=== PATIENT | male | born 1960 | race Caucasian/White ===

== ENCOUNTER 2021-02-15 22:37 | Emergency (ER) | payer OTHER, SELFPAY ==
--- NOTE | ~2021-02-15 | CT_ITS ---
EXAMINATION: CT ABDOMEN AND PELVIS WITHOUT CONTRAST CLINICAL INFORMATION: Pain. Concern for kidney stone. COMPARISON: 05/05/2021. TECHNIQUE: Contiguous axial thin section helical images of the abdomen and pelvis were performed without oral or IV contrast. The data set was reformatted in the coronal and sagittal planes and reviewed on an independent workstation. DLP: 701 mGy-cm. FINDINGS: The visualized lung bases are clear. The visualized portions of the heart are unremarkable. The liver is of normal size and attenuation without focal lesions nor intrahepatic biliary ductal dilation. A normal gallbladder is identified. There is no wall thickening or discernible pericholecystic fluid. The spleen, pancreas, adrenal glands are unremarkable. Both kidneys are of normal size and attenuation. There are punctate nonobstructive renal calculi within the lower poles bilaterally. There is left grade 1-2 hydroureteronephrosis secondary to a 3 mm obstructive left UVJ calculus. There is left perinephric stranding. There is no abdominal free fluid. There is neither mesenteric nor retroperitoneal lymphadenopathy. There is sigmoid diverticulosis without evidence of diverticulitis; otherwise, unremarkable unopacified loops of small and large bowel are identified. A normal appendix is identified. There is no pelvic free fluid. The urinary bladder is unremarkable. There is neither pelvic nor inguinal lymphadenopathy. There is a fat-containing left inguinal hernia. Bone windows: Neither sclerotic nor lytic bone lesions are identified. CT/CT abdomen pelvis wo con IMPRESSION: Left grade 1-2 hydroureteronephrosis secondary to a 3 mm obstructive left UVJ calculus. Nonobstructive renal calculi bilaterally. Automated exposure control (Care Dose) Adjustment of the mA and/or kv according to patient size (this includes techniques or standardized protocols for targeted exams where dose is matched to indication / reason for exam; i.e. extremities or head).
[2021-02-15 22:39] VITALS: BP 192/91; PULSE 50; RESP 20; TEMP 37.1; O2SAT 99; BMI 33.3
--- NOTE | 2021-02-15 23:21 | ED.ABDPAIN ---
HPI - Abdominal Pain General Chief Complaint: Abdominal Pain Stated Complaint: Flank pain Time Seen by Provider: 02/15/21 23:19 History of Present Illness HPI narrative: Patient is a 60-year-old male presents today with having abdominal pain. The pain is over the left side. It is sharp in nature. It is sudden in onset. Associated with nausea. Similar to previous bouts of kidney stone. Never had any kind of abdominal surgery in the past. No cough no congestion or upper respiratory symptoms. No diaphoresis. Patient is from home. Pain is 08/29. Related Data Previous Rx's Medication Instructions Recorded ibuprofen 400 mg PO Q6H PRN #20 tab 02/16/21 ondansetron 4 mg PO TID PRN 5 Days #10 tab 02/16/21 oxycodone-acetaminophen [Percocet] 1 tab PO TID PRN #10 tab 02/16/21 tamsulosin [Flomax] 0.4 mg PO DAILY #7 cap 02/16/21 Allergies Allergy/AdvReac Type Severity Reaction Status Date / Time No Known Allergies Allergy Unverified 08/06/20 16:31 Review of Systems Review of Systems Constitutional: No Weight loss, No Fever, No Chills, No Night Sweats, No Fatigue, No Malaise ENT/Mouth: No Hearing loss, No Ear Pain, No Nasal Congestion, No Sinus Pain, No Hoarseness, No sore throat, No Rhinorrhea, No Swallowing Difficulty Eyes: No Eye Pain, No Swelling, No Redness, No Foreign Body, No Discharge, No Vision Changes Cardiovascular: No Chest Pain, No SOB, No Dyspnea on Exertion, No Orthopnea, No Edema, No Palpitations Respiratory: No Cough, No Sputum, No Wheezing, No Smoke Exposure, No Dyspnea Gastrointestinal: No Nausea, No Vomiting, No Diarrhea, No Constipation, No abdominal Pain, No Hematochezia, No Melena Genitourinary: no irregular bleeding, No Dysuria, No Urinary Frequency, No Hematuria, No Urinary Incontinence, No Urgency, No Flank Pain, No Urinary Flow Changes, No Hesitancy Musculoskeletal: No joint pain, No Myalgias, No Joint Swelling Skin: No Skin Lesions, No rash Neuro: No Weakness, No Numbness, No Paresthesias, No Loss of Consciousness, No Dizziness, No Headache Psych: No Anxiety/Panic, No Depression, No SI/HI/AH/VH, No Social Issues, Heme/Lymph: No Bruising, No Bleeding,No Lymphadenopathy Endocrine: No Polyuria, No Polydipsia, No Temperature Intolerance Yes all other systems are reviewed and are negative Physical Exam Vital Signs: Vital Signs: Last Vital Signs Temp 97.7 F 02/16/21 00:16 Pulse 49 L 02/16/21 00:16 Resp 18 02/16/21 00:16 BP 147/86 H 02/16/21 00:16 Pulse Ox 97 02/16/21 00:16 Body Mass Index 33.3 Appearance: Alert. Oriented X3. No acute distress. Eyes: Pupils equal, round and reactive to light. ENT: Pharynx normal. Neck: Normal inspection. Neck supple. No lymph nodes noted. No crepitus CVS: Normal heart rate and rhythm. Pulses normal. Normal S1 and S2 Respiratory: No respiratory distress. Breath sounds normal. No Wheezing. No rales Abdomen: Soft and nontender. No rigidity. No distention. good BS x4 Skin: Skin warm and dry. Normal skin color. Normal skin turgor. Extremities: No lower extremity edema. Neurovascular intact to all extremities. No Lacerations. No Rash Neuro: Oriented X 3. No motor deficit. No sensory deficit. Moving all extermities. No slurred speech MDM - Abdominal Pain MDM Narrative Medical decision making narrative: Well-appearing question kidney stone. Will check urine. Will check CT of the abdomen will give pain medication and baseline labs. CT positive for 3 mm UVJ stone. Will discharge patient home. Pain medication. Patient's creatinine is normal. Urine showed no signs of infection. In stable condition. Lab Data Result diagrams: 02/15/21 23:43 02/16/21 00:14 Labs: Lab Results 02/15/21 02/15/21 02/15/21 Range/Units 23:42 23:42 23:43 WBC 8.3 (4.8-10.8) X10*3/uL RBC 4.94 (4.60-5.80) X10*6/uL Hgb 16.4 (14.0-18.0) g/dl Hct 48.2 (42-52) % MCV 97.6 (80-98) fL MCH 33.2 H (27.0-33.0) pg MCHC 34.0 (31.0-36.0) g/dl RDW 13.1 (11.0-16.0) % Plt Count 209 (160-400) X10*3/uL MPV 12.5 H (9.4-12.4) fL Immature Gran % (Auto) 0.2 (0.0-0.4) % Neut % (Auto) 60.5 (45-73) % Lymph % (Auto) 26.5 (20-40) % [place] % (Auto) 8.8 (2-11) % Eos % (Auto) 3.2 (0-4) % Baso % (Auto) 0.8 (0-2) % Lymph # (Auto) 2.2 (1.2-4.9) X10*3/uL [place] # (Auto) 0.7 (0.1-1.2) X10*3/uL Eos # (Auto) 0.3 (0.0-0.4) X10*3/uL Baso # (Auto) 0.1 (0.0-0.2) X10*3/uL Abs Immat Gran (auto) 0.02 (0.00-0.03) X10*3/uL Absolute Neuts (auto) 5.0 (2.0-8.3) X10*3/uL Absolute Nucleated RBC 0.000 (0.0-0.012) X10*3/uL Nucleated RBC % (auto) 0.0 (0.0-0.2) /100WBC Hold Blue Top SEE NOTE Sodium (135-145) mmol/L Potassium (3.3-5.1) mmol/L Chloride (96-108) mmol/L Carbon Dioxide (22-29) mmol/L Anion Gap (12-20) BUN (9-16) mg/dL Creatinine (0.5-1.4) mg/dL Estim Creat Clear Calc Estimated GFR Random Glucose (60-115) mg/dL Calcium (8.4-10.2) mg/dL Total Bilirubin (0.0-1.0) mg/dL AST (5-37) U/L ALT (0-40) U/L Alkaline Phosphatase (39-117) U/L Total Protein (6.5-8.0) g/dL Albumin (3.5-5.0) g/dL Lipase (8-78) U/L Urine Color DARK YELLOW Urine Appearance CLEAR Urine pH 6.0 (5.0-8.0) Ur Specific [place] >= 1.030 H (1.005-1.025) Urine Protein TRACE (NEG-TRACE) MG/DL Urine Glucose (UA) NEG (NEG) MG/DL Urine Ketones NEG (NEG) MG/DL Urine Blood 2+ H (NEG) Urine Nitrite NEG (NEG) Ur Leukocyte Esterase NEG (NEG) Urine RBC 1-4 (0) /HPF Urine WBC 1-4 (0-4) /HPF Ur Squamous Epith Cells 1+ /LPF Urine Bacteria NONE /LPF Urine Mucus 2+ /LPF 02/16/21 Range/Units 00:14 WBC (4.8-10.8) X10*3/uL RBC (4.60-5.80) X10*6/uL Hgb (14.0-18.0) g/dl Hct (42-52) % MCV (80-98) fL MCH (27.0-33.0) pg MCHC (31.0-36.0) g/dl RDW (11.0-16.0) % Plt Count (160-400) X10*3/uL MPV (9.4-12.4) fL Immature Gran % (Auto) (0.0-0.4) % Neut % (Auto) (45-73) % Lymph % (Auto) (20-40) % [place] % (Auto) (2-11) % Eos % (Auto) (0-4) % Baso % (Auto) (0-2) % Lymph # (Auto) (1.2-4.9) X10*3/uL [place] # (Auto) (0.1-1.2) X10*3/uL Eos # (Auto) (0.0-0.4) X10*3/uL Baso # (Auto) (0.0-0.2) X10*3/uL Abs Immat Gran (auto) (0.00-0.03) X10*3/uL Absolute Neuts (auto) (2.0-8.3) X10*3/uL Absolute Nucleated RBC (0.0-0.012) X10*3/uL Nucleated RBC % (auto) (0.0-0.2) /100WBC Hold Blue Top Sodium 139 (135-145) mmol/L Potassium 3.6 (3.3-5.1) mmol/L Chloride 103 (96-108) mmol/L Carbon Dioxide 26 (22-29) mmol/L Anion Gap 14 (12-20) BUN 13 (9-16) mg/dL Creatinine 1.18 (0.5-1.4) mg/dL Estim Creat Clear Calc 67.1 Estimated GFR > 60 Random Glucose 173 H (60-115) mg/dL Calcium 9.1 (8.4-10.2) mg/dL Total Bilirubin 1.1 H (0.0-1.0) mg/dL AST 33 (5-37) U/L ALT 41 H (0-40) U/L Alkaline Phosphatase 75 (39-117) U/L Total Protein 7.5 (6.5-8.0) g/dL Albumin 4.4 (3.5-5.0) g/dL Lipase 49 (8-78) U/L Urine Color Urine Appearance Urine pH (5.0-8.0) Ur Specific [place] (1.005-1.025) Urine Protein (NEG-TRACE) MG/DL Urine Glucose (UA) (NEG) MG/DL Urine Ketones (NEG) MG/DL Urine Blood (NEG) Urine Nitrite (NEG) Ur Leukocyte Esterase (NEG) Urine RBC (0) /HPF Urine WBC (0-4) /HPF Ur Squamous Epith Cells /LPF Urine Bacteria /LPF Urine Mucus /LPF Discharge Plan Discharge Clinical Impression: Renal colic Patient Disposition: Home, Self-Care Instructions: Renal Colic (ED) Prescriptions: New tamsulosin [Flomax] 0.4 mg capsule 0.4 mg PO DAILY Qty: 7 RF: 0 ibuprofen 400 mg tablet 400 mg PO Q6H PRN (Reason: pain) Qty: 20 RF: 0 ondansetron 4 mg tablet,disintegrating 4 mg PO TID PRN (Reason: nausea and vomiting) 5 Days Qty: 10 RF: 0 oxycodone-acetaminophen [Percocet] 5-325 mg tablet 1 tab PO TID PRN (Reason: pain) Qty: 10 RF: 0 Referrals: Hermes Castillo MD [Physician] - 2 days REPLACED BY [facility] Past Medical History Attestation statement: The following information was validated with the patient. Medical History Kidney stones Social History Social History Advance Directives: No
[2021-02-15] MEDS: HYDROmorphone HCl 0.5 MG/0.5 ML SYRINGE IVPUSH (23:46)
[2021-02-15] MEDS: ondansetron HCL 4 MG/2 ML VIAL IVPUSH (23:46)
[2021-02-15 23:47] LABS: Basophils Absolute Auto 0.1 X10*3/uL (0.0-0.2); Basophils Percent Auto 0.8 % (0-2); Eosinophils Absolute Auto 0.3 X10*3/uL (0.0-0.4); Eosinophils Percent Auto 3.2 % (0-4); Hematocrit 48.2 % (42-52); Hemoglobin 16.4 g/dl (14.0-18.0); Imm Gran Abs Auto 0.02 X10*3/uL (0.00-0.03); Imm Gran Pct Auto 0.2 % (0.0-0.4); Lymphocytes Absolute Auto 2.2 X10*3/uL (1.2-4.9); Lymphocytes Percent Auto 26.5 % (20-40); Mean Corpuscular Hemoglobin 33.2 pg (27.0-33.0); Mean Corpuscular Volume 97.6 fL (80-98); Mean Platelet Volume 12.5 fL (9.4-12.4); Monocytes Absolute Auto 0.7 X10*3/uL (0.1-1.2); Monocytes Percent Auto 8.8 % (2-11); Neutrophils Percent Auto 60.5 % (45-73); Platelet Count 209 X10*3/uL (160-400); Red Blood Count 4.94 X10*6/uL (4.60-5.80); Red Cell Distribution Width 13.1 % (11.0-16.0); White Blood Count 8.3 X10*3/uL (4.8-10.8)
[2021-02-15 23:48] LABS: MANUAL DIFF FLAG NO
[2021-02-15 23:49] LABS: Glucose Urine UA NEG (NEG); Leukocyte Esterase Urine NEG (NEG); Nitrite Urine NEG (NEG); Specific Gravity - Urine >= 1.030 (1.005-1.025); Urine Blood 2+ (NEG); Urine Ketones NEG (NEG); Urine Protein TRACE MG/DL (NEG-TRACE)
[2021-02-15 23:50] LABS: Appearance Urine CLEAR; Color Urine DARK YELLOW
[2021-02-15] MEDS: Ketorolac Tromethamine 15 MG/ML VIAL IV (23:54)
[2021-02-15 23:57] LABS: Mucus Urine 2+ /LPF; Squamous Epithelial Cell Urine 1+ /LPF
[2021-02-16 00:16] VITALS: BP 147/86; PULSE 49; RESP 18; TEMP 36.5; O2SAT 97
--- NOTE | 2021-02-16 00:52 | PC.NURSE ---
PT'S PAIN LEVEL NOW 4/10 FOLLOWING IV MEDICATIONS. PT NOW ABLE TO SIT IN BED, WAS PACING AND VOMITING.
[2021-02-16 00:57] LABS: Alanine Aminotransferase 41 U/L (0-40); Albumin Level 4.4 g/dL (3.5-5.0); Alkaline Phosphatase 75 U/L (39-117); Anion Gap 14 (12-20); Aspartate Amino Transferase 33 U/L (5-37); Bilirubin Total 1.1 mg/dL (0.0-1.0); Blood Urea Nitrogen 13 mg/dL (9-16); Calcium 9.1 mg/dL (8.4-10.2); Carbon Dioxide 26 mmol/L (22-29); Chloride 103 mmol/L (96-108); Creatinine Clr Calc Pharmacy 67.1; Estimated Glomerular Filt Rate > 60; Glucose Random 173 mg/dL (60-115); Lipase 49 U/L (8-78); Potassium 3.6 mmol/L (3.3-5.1); Sodium 139 mmol/L (135-145); Total Protein 7.5 g/dL (6.5-8.0)
[2021-02-16] MEDS: HYDROmorphone HCl 2 MG TABLET PO (01:27)
== END 2021-02-16 01:30 | disposition home or self-care (01) ==
PROVIDERS: Emergency Provider Emergency Medicine Emergency Medical Services; PCP Internal Medicine
DX: N13.2 Hydronephrosis with renal and ureteral calculous obstruction (principal); Z87.442 Personal history of urinary calculi
CPT/HCPCS: 36415; 74176; 80053; 81001; 83690; 85025; 96374; 96375; 99283; 99284; J1170; J1885; J2405

== ENCOUNTER 2021-05-06 10:29 | Inpatient (IN) | payer OTHER, SELFPAY ==
--- NOTE | ~2021-05-06 | CT_ITS ---
EXAMINATION: CT ABDOMEN AND PELVIS WITH CONTRAST CLINICAL INFORMATION: Right lower quadrant pain. COMPARISON: Prior CT examinations, most recently 02/06/2021. TECHNIQUE: Multidetector volumetric images were obtained from the superior aspect of the liver through the pubic symphysis following administration 85 mL of Omnipaque 350 intravenous contrast. Sagittal and coronal reformatted images were obtained on the technologist's workstation. Oral contrast: No This CT examination was performed using dose optimization techniques as appropriate, variously including the following: *Automated exposure control *Adjustment of mA and/or kV according to patient size (this includes techniques or standardized protocols for targeted exams where dose is matched to indication/reason for exam; i.e. extremities or head) *Use of iterative reconstruction technique DLP: 802 mGy-cm FINDINGS: LUNG BASES: The visualized lung bases are unremarkable. LIVER, GALLBLADDER, AND BILIARY TREE: The liver is normal in size, shape, and attenuation. No focal hepatic lesion or biliary ductal dilatation is present. The gallbladder is unremarkable with no evidence of radiopaque gallstones, gallbladder wall thickening, or obvious pericholecystic inflammatory changes. PANCREAS: Unremarkable. SPLEEN: Unremarkable. ADRENAL GLANDS: Unremarkable. KIDNEYS AND URETERS: The kidneys are normal in size, shape, and attenuation. No hydronephrosis, hydroureter, or calculi seen. No perinephric stranding. BLADDER: Unremarkable. GASTROINTESTINAL TRACT: There is moderate diverticulosis. There is vigorous fat stranding adjacent to the sigmoid colon, consistent with diverticulitis. There are adjacent tiny air locules at the anterior margin of the mid sigmoid colon (3:66), suggesting microperforation of a diverticulum. No free intraperitoneal air is seen. ABDOMINAL WALL: There is a moderate fat-containing left inguinal hernia. LYMPH NODES: Normal. VASCULAR: Unremarkable. PELVIC VISCERA: There is mild prostatomegaly, with a transverse span of 5.3 cm. There are coarse central prostatic calcifications. The seminal vesicles are unremarkable. OSSEOUS STRUCTURES: There is degenerative change of the right hip, with subchondral cyst formation. No acute or aggressive osseous abnormality is seen. CT/CT abdomen pelvis w con IMPRESSION: Findings are consistent with acute sigmoid diverticulitis with microperforation. No free intraperitoneal air is seen. There is no focal abscess formation.
--- NOTE | 2021-05-06 10:58 | ED_ITS ---
HPI - Abdominal Pain General Chief Complaint: Abdominal Pain Stated Complaint: lower abd pain Time Seen by Provider: 05/06/21 10:57 Source: patient Mode of arrival: ambulatory Limitations: no limitations History of Present Illness HPI narrative: 60 yo male hx of renal colic comes in with RLQ pain x 4 days c/o chills, some nausea but no vomiting/diarrhea, ate fish before hand MD elicited complaint: abdominal pain Pertinent past history: kidney stones Onset (ago): day(s) (4) Pain Consistency: constant Location: RLQ Severity: moderate Quality: cramping and aching Radiation: none Migration to: no migration Exacerbating factors: movement Relieving factors: nothing Associated symptoms: nausea Related Data Previous Rx's Medication Instructions Recorded ibuprofen 400 mg PO Q6H PRN #20 tab 02/16/21 ondansetron 4 mg PO TID PRN 5 Days #10 tab 02/16/21 oxycodone-acetaminophen [Percocet] 1 tab PO TID PRN #10 tab 02/16/21 oxycodone-acetaminophen [Percocet] 1 tab PO TID PRN #9 tab 02/16/21 tamsulosin [Flomax] 0.4 mg PO DAILY #7 cap 02/16/21 Allergies Allergy/AdvReac Type Severity Reaction Status Date / Time No Known Allergies Allergy Unverified 08/06/20 16:31 Review of Systems Review of Systems Constitutional : No Weight loss, No Fever, pos Chills ENT/Mouth : No sore throat, No Rhinorrhea Eyes: No Swelling, No Redness Cardiovascular : No Chest Pain, No SOB, NoEdema Respiratory : No Cough, No Sputum, No Wheezing Gastrointestinal : Positive Nausea, no Vomiting, no Diarrhea, positive abdominal Pain, No Hematochezia, No Melena Genitourinary : No Dysuria, No Urinary Frequency, No Hematuria, No Urgency Musculoskeletal : No joint pain, No Myalgias, No Joint Swelling Skin : No Skin Lesions, No rash Neuro : No Weakness, No Numbness, No Dizziness, No Headache Psych : No Anxiety/Panic, No Depression Heme/Lymph: No Bruising, No Lymphadenopathy Endocrine : No Polyuria, No Polydipsia All other systems reviewed and are negative. Physical Exam Vital Signs: Vital Signs: Last Vital Signs Temp 98.5 F 05/06/21 11:20 Pulse 67 05/06/21 11:20 Resp 16 05/06/21 11:20 BP 141/97 H 05/06/21 11:20 Pulse Ox 97 05/06/21 11:20 Body Mass Index 34.9 Appearance: Alert. Oriented X3. No acute distress. Eyes: Pupils equal, round and reactive to light. ENT: Pharynx normal. Neck: Normal inspection. Neck supple. CVS: Normal heart rate and rhythm. Pulses normal. Respiratory: No respiratory distress. Breath sounds normal. Abdomen: Soft and moderate RLQ ttp no rebound or guarding Skin: Skin warm and dry. Normal skin color. Normal skin turgor. Extremities: No lower extremity edema. No calf ttp Neuro: Oriented X 3. No motor deficit. No sensory deficit. Course Course Course Narrative: at this time given CT scan infection suspected 159pm - started cultures, lactic acid and IV zosyn, message sent to Dr. Olivier Aguayo to admit MDM - Abdominal Pain MDM Narrative Medical decision making narrative: 60 yo male hx of renal colic comes in with RLQ pain x 4 days c/o chills, some nausea but no vomiting/diarrhea, ate fish before hand at this time will need labs, UA, CT scan for appendicitis/renal colic, IV toradol, IV morphine for pain, dispo per results and findings Differential Diagnosis Differential diagnosis: Likely abdominal pain, acute appendicitis, calculus of kidney, diverticulitis and renal colic; Unlikely aortic dissection and mesenteric ischemia Lab Data Result diagrams: 05/06/21 11:30 05/06/21 11:30 Labs: Lab Results 05/06/21 05/06/21 05/06/21 Range/Units 11:30 11:30 11:30 WBC 12.6 H (4.8-10.8) X10*3/uL RBC 4.61 (4.60-5.80) X10*6/uL Hgb 15.3 (14.0-18.0) g/dl Hct 44.0 (42-52) % MCV 95.4 (80-98) fL MCH 33.2 H (27.0-33.0) pg MCHC 34.8 (31.0-36.0) g/dl RDW 12.7 (11.0-16.0) % Plt Count 187 (160-400) X10*3/uL MPV 12.0 (9.4-12.4) fL Immature Gran % (Auto) 0.4 (0.0-0.4) % Neut % (Auto) 75.4 H (45-73) % Lymph % (Auto) 12.7 L (20-40) % [place] % (Auto) 9.4 (2-11) % Eos % (Auto) 1.7 (0-4) % Baso % (Auto) 0.4 (0-2) % Lymph # (Auto) 1.6 (1.2-4.9) X10*3/uL [place] # (Auto) 1.2 (0.1-1.2) X10*3/uL Eos # (Auto) 0.2 (0.0-0.4) X10*3/uL Baso # (Auto) 0.1 (0.0-0.2) X10*3/uL Abs Immat Gran (auto) 0.05 H (0.00-0.03) X10*3/uL Absolute Neuts (auto) 9.5 H (2.0-8.3) X10*3/uL Absolute Nucleated RBC 0.000 (0.0-0.012) X10*3/uL Nucleated RBC % (auto) 0.0 (0.0-0.2) /100WBC Sodium 139 (135-145) mmol/L Potassium 4.4 D (3.3-5.1) mmol/L Chloride 102 (96-108) mmol/L Carbon Dioxide 29 (22-29) mmol/L Anion Gap 12 (12-20) BUN 11 (9-16) mg/dL Creatinine 1.08 (0.5-1.4) mg/dL Estim Creat Clear Calc 75.2 Estimated GFR > 60 Random Glucose 150 H (60-115) mg/dL Calcium 9.2 (8.4-10.2) mg/dL Magnesium 2.0 (1.6-2.6) mg/dL Total Bilirubin 1.1 H (0.0-1.0) mg/dL Direct Bilirubin 0.4 (0.0-0.5) mg/dL AST 22 (5-37) U/L ALT 26 (0-40) U/L Alkaline Phosphatase 81 (39-117) U/L Total Protein 6.8 (6.5-8.0) g/dL Albumin 4.1 (3.5-5.0) g/dL Lipase 45 (8-78) U/L Discharge Plan Discharge Clinical Impression: Diverticulitis Abdominal pain Qualifiers: Abdominal location: lower abdomen, unspecified Qualified Code(s): R10.30 - L ower abdominal pain, unspecified Leukocytosis Qualifiers: Leukocytosis type: unspecified Qualified Code(s): D72.829 - Elevated white blood cell count, unspecified Patient Disposition: Admitted As Inpatient [facility] Past Medical History Attestation statement: The following information was validated with the patient. Medical History Kidney stones Social History Social History (Updated 05/06/21 @ 11:09 by Oksana Mcfarlane DO) Alcohol intake: never Patient Tobacco Use Status: Never used Tobacco Advance Directives: Yes Advance Directives Information Provided: Yes Advance Directives on File: No
[2021-05-06 11:20] VITALS: BP 141/97; PULSE 67; RESP 16; TEMP 36.9; O2SAT 97; BMI 34.9
[2021-05-06 11:36] LABS: MANUAL DIFF FLAG NO
[2021-05-06 11:37] LABS: Basophils Absolute Auto 0.1 X10*3/uL (0.0-0.2); Basophils Percent Auto 0.4 % (0-2); Eosinophils Absolute Auto 0.2 X10*3/uL (0.0-0.4); Eosinophils Percent Auto 1.7 % (0-4); Hemoglobin 15.3 g/dl (14.0-18.0); Imm Gran Abs Auto 0.05 X10*3/uL (0.00-0.03); Imm Gran Pct Auto 0.4 % (0.0-0.4); Lymphocytes Absolute Auto 1.6 X10*3/uL (1.2-4.9); Lymphocytes Percent Auto 12.7 % (20-40); Mean Corpuscular HGB Conc 34.8 g/dl (31.0-36.0); Mean Corpuscular Hemoglobin 33.2 pg (27.0-33.0); Mean Corpuscular Volume 95.4 fL (80-98); Monocytes Absolute Auto 1.2 X10*3/uL (0.1-1.2); Monocytes Percent Auto 9.4 % (2-11); Neutrophils Absolute Auto 9.5 X10*3/uL (2.0-8.3); Neutrophils Percent Auto 75.4 % (45-73); Platelet Count 187 X10*3/uL (160-400); Red Blood Count 4.61 X10*6/uL (4.60-5.80); Red Cell Distribution Width 12.7 % (11.0-16.0); White Blood Count 12.6 X10*3/uL (4.8-10.8)
[2021-05-06] MEDS: ondansetron HCL 4 MG/2 ML VIAL IVPUSH (11:48)
[2021-05-06] MEDS: Morphine Sulfate 4 MG/ML CARTRIDGE IVPUSH (11:48)
[2021-05-06] MEDS: Ketorolac Tromethamine 30 MG/ML VIAL IVPUSH (11:48)
[2021-05-06] MEDS: 0.9 % Sodium Chloride 1,000 ML 999 ML IVCONT (11:48)
[2021-05-06 12:07] LABS: Anion Gap 12 (12-20); Blood Urea Nitrogen 11 mg/dL (9-16); Calcium 9.2 mg/dL (8.4-10.2); Carbon Dioxide 29 mmol/L (22-29); Chloride 102 mmol/L (96-108); Creatinine Clr Calc Pharmacy 75.2; Estimated Glomerular Filt Rate > 60; Glucose Random 150 mg/dL (60-115); Potassium 4.4 mmol/L (3.3-5.1); Sodium 139 mmol/L (135-145)
[2021-05-06 12:08] LABS: Alanine Aminotransferase 26 U/L (0-40); Albumin Level 4.1 g/dL (3.5-5.0); Alkaline Phosphatase 81 U/L (39-117); Aspartate Amino Transferase 22 U/L (5-37); Bilirubin Direct 0.4 mg/dL (0.0-0.5); Bilirubin Total 1.1 mg/dL (0.0-1.0); Lipase 45 U/L (8-78); Total Protein 6.8 g/dL (6.5-8.0)
[2021-05-06] MEDS: iohexoL 350 MG/ML 100 ML INFUS..BTL IV (13:00)
--- NOTE | 2021-05-06 14:25 | PHA.MEDREC ---
Pharmacy Consult ? Medication Reconciliation Pharmacy has completed the medication reconciliation. PATIENT HAD SOME OXYCODONE-APAP 5/325 LEFT OVER FROM THE LAST TIME HE WAS SEEN FOR A KIDNEY STONE. HE TOOK ONE TABLET YESTERDAY TO HELP WITH THE PAIN HE WAS FEELING DURING THE DAY. Other than that, the patient has no known home medications. [phone] Elizabet Santiago, [facility], PharmD
--- NOTE | 2021-05-06 14:28 | PM.HPGS ---
History of Present Illness History of Present Illness Date of Service: 05/07/21 Chief complaint: acute diverticulitis with microperforation Narrative: Noah Brown is a 60 year old male who came to the emergency room today because of lower abdominal pain. He said that he has had this for about 3-4 days now. He says that this is almost constant. He says that this has not improved at all so he decided to come to the emergency room. He denies any diarrhea. He denies any vomiting or nausea. He did state that he felt he had some fever at home although he did not document this. He said that he still has good oral intake. He says that he feels constipated now because he has pain whenever he tries to have a bowel movement. He has never had a colonoscopy in the past. He was here in the emergency room earlier this year because of kidney stones. He says that he was told that he this had passed on its own. Review of Systems Constitutional: Constitutional: Denies chills and Denies fever(s) Cardiovascular: Cardiovascular: Denies chest pain, Denies dyspnea and Denies dyspnea on exertion Respiratory: Respiratory: Denies cough, Denies dyspnea and Denies dyspnea on exertion Gastrointestinal: Gastrointestinal: Denies hematochezia and Denies change in bowel habits Genitourinary: Genitourinary: Denies hematuria and Denies difficulty urinating Musculoskeletal: Musculoskeletal: Denies back pain and Denies limited range of motion Neurologic: Denies focal weakness and Denies convulsions Psychiatric: Psychiatric: Denies depression and Denies mood swings PMFSH Past Medical History Medical History (Updated 05/06/21 @ 14:30 by Eliezer Aguayo MD) Kidney stones Kidney stones Social History Social History (Updated 05/06/21 @ 11:09 by Oksana Mcfarlane DO) Household Members: Family Housing: House Do you presently have visiting nurse or other home services: No Alcohol intake: never Patient Tobacco Use Status: Never used Tobacco Use of substances other than those prescribed or required for medical reasons: No Currently Displaying Signs/Symptoms of Drug Intoxication Withdrawal: No Have you been hit, kicked, punched, or otherwise hurt by someone within the past year? If so, by whom?: No Do you feel safe in your current relationship?: Yes Is there a partner from a previous relationship who is making you feel unsafe now?: No Are you made to feel afraid or neglected: No Advance Directives: Yes Advance Directives Information Provided: Yes Advance Directives on File: No Advance Directives Date on File: 05/06/21 Do you have thoughts of harming others: None Do you have a plan to hurt others: No Plan Recently lost weight without trying: No Eating poorly because of decreased appetite: No Nutrition Risks: No Nutritional Risk Poor oral hygiene: No service: Yes (2YRS [employer] [place]) Current occupational status: employed Meds Allergies Allergy/AdvReac Type Severity Reaction Status Date / Time No Known Allergies Allergy Verified 05/06/21 16:07 Active Medications: Current Medications Generic Name Dose Route Start Last Admin Trade Name Freq PRN Reason Stop Dose Admin Heparin Sodium (Porcine) 5,000 unit 05/06/21 17:00 Heparin Sodium,Porcine 5,000 Unit/Ml Vial SUBCUT Q12H RENÉE Lactated Ringer's 500 mls @ 80 mls/hr 05/06/21 14:30 Lr IV 05/06/21 20:44 .[id number] RENÉE Piperacillin Sod/Tazobactam 50 mls @ 100 mls/hr 05/06/21 15:00 Sod 3.375 gm/ Sodium Chloride IV 05/06/21 15:29 ONCE ONE Morphine Sulfate 3 mg 05/06/21 14:17 Morphine Sulfate 4 Mg/Ml Cartridge IVPUSH Q3H PRN Pain, Severe (Pain Scale 7-10) Ondansetron HCl 4 mg 05/06/21 14:22 Ondansetron Hcl 4 Mg/2 Ml Vial IVPUSH Q8H PRN nausea Pharmacy Consult 1 each 05/06/21 13:56 Consult Rx Perform Med Rec MISCELLANE ONCE PRN Consult order Sodium Chloride 3 ml 05/06/21 16:00 0.9 % Sodium Chloride Flush 3 Ml Syringe IVFLUSH QSHIFT [facility] Physical Exam Vital Signs: Vital Signs: Last Vital Signs Temp 98.5 F 05/06/21 11:20 Pulse 67 05/06/21 11:20 Resp 16 05/06/21 11:20 BP 141/97 H 05/06/21 11:20 Pulse Ox 97 05/06/21 11:20 Body Mass Index 34.9 Const: General: comfortable and no acute distress Orientation/consciousness: patient oriented x3 Neck: Neck: Yes no lymphadenopathy Resp: Auscultation: clear to auscultation bilaterally Cardio: Rhythm: regular rhythm GI: Other: Mild tenderness on lower abdomen with palpation Palpation (GI): Soft to palpation, nontender and no guarding Neuro: General: patient oriented x3 Results Results Labs: Short CBC 05/06/21 Range/Units 11:30 WBC 12.6 H (4.8-10.8) X10*3/uL Hgb 15.3 (14.0-18.0) g/dl Hct 44.0 (42-52) % Plt Count 187 (160-400) X10*3/uL BMP 05/06/21 11:30 Sodium 139 Potassium 4.4 D Chloride 102 Carbon Dioxide 29 BUN 11 Creatinine 1.08 Calcium 9.2 Liver Function 05/06/21 Range/Units 11:30 Total Bilirubin 1.1 H (0.0-1.0) mg/dL Direct Bilirubin 0.4 (0.0-0.5) mg/dL AST 22 (5-37) U/L ALT 26 (0-40) U/L Alkaline Phosphatase 81 (39-117) U/L Albumin 4.1 (3.5-5.0) g/dL Abdomen CT scan report/results: report reviewed and image reviewed CT scan - pelvis: report reviewed and image reviewed Assessment and Plan (1) Diverticulitis: Status: Acute He has had lower abdominal pain for about 3-4 days now. I have reviewed his CAT scan and there was note of inflammatory changes in the sigmoid consistent with acute diverticulitis. There are some small locules of air surrounding this suggestive of microperforation. There is no free air. He has a benign abdominal exam although has some tenderness on the lower abdomen. He will be started on IV Zosyn. He will be on bowel rest. I had a long discussion with him about the planned treatment. He understands that once in a while, laparotomy may be necessary if he worsens clinically or he does not improved over the next few days. His daughter was with him during the visit. Quality Stroke Does the patient have a stroke diagnosis?: No VTE Prior VTE?: No VTE Risk Level:: Surgical - high VTE Device Contraindication: N/A - Device Ordered VTE Drug Contraindication: N/A - Med Ordered Procedures Date of Service Date of Service: 05/07/21
[2021-05-06] MEDS: Piperacillin Sodium/Tazobactam 3.375 GM in 0.9 % Sodium Chloride 50 ML IV ×2 (14:30→20:08)
[2021-05-06 14:48] LABS: COVID-19 Test Negative (Negative); IDNOW Serial# 9DD0AD1C
[2021-05-06] MEDS: Lactated Ringers 500 ML 80 ML IV (15:11)
[2021-05-06 16:00] VITALS: BP 131/82; PULSE 54; RESP 18; TEMP 36.1; O2SAT 99
[2021-05-06] MEDS: Heparin Sodium,Porcine 5,000 UNIT/ML VIAL 5000 UNIT SUBCUT (17:00)
[2021-05-06] MEDS: Morphine Sulfate 4 MG/ML CARTRIDGE 3 MG IVPUSH (19:07)
[2021-05-06 21:40] LABS: Glucose Urine UA NEG (NEG); Leukocyte Esterase Urine NEG (NEG); Nitrite Urine NEG (NEG); Urine Blood NEG (NEG); Urine Ketones NEG (NEG); Urine Protein NEG (NEG-TRACE)
[2021-05-06 21:41] LABS: Appearance Urine CLEAR; Color Urine YELLOW
[2021-05-06] MEDS: 0.9 % Sodium Chloride Flush 3 ML SYRINGE IVFLUSH (22:47)
[2021-05-07] VITALS: BP 158/98; PULSE 51; RESP 18; TEMP 36.6; O2SAT 99
[2021-05-07] MEDS: Piperacillin Sodium/Tazobactam 3.375 GM in 0.9 % Sodium Chloride 50 ML IV ×4 (01:45→20:27)
[2021-05-07] MEDS: Heparin Sodium,Porcine 5,000 UNIT/ML VIAL 5000 UNIT SUBCUT ×2 (05:23→17:19)
[2021-05-07 06:45] LABS: MANUAL DIFF FLAG NO
[2021-05-07 06:58] LABS: Basophils Percent Auto 0.4 % (0-2); Eosinophils Absolute Auto 0.3 X10*3/uL (0.0-0.4); Hematocrit 41.4 % (42-52); Hemoglobin 14.1 g/dl (14.0-18.0); Imm Gran Abs Auto 0.06 X10*3/uL (0.00-0.03); Imm Gran Pct Auto 0.6 % (0.0-0.4); Lymphocytes Percent Auto 28.2 % (20-40); Mean Corpuscular HGB Conc 34.1 g/dl (31.0-36.0); Mean Corpuscular Hemoglobin 32.9 pg (27.0-33.0); Mean Corpuscular Volume 96.5 fL (80-98); Mean Platelet Volume 12.3 fL (9.4-12.4); Monocytes Absolute Auto 0.9 X10*3/uL (0.1-1.2); Monocytes Percent Auto 8.7 % (2-11); Neutrophils Absolute Auto 6.3 X10*3/uL (2.0-8.3); Neutrophils Percent Auto 59.1 % (45-73); Platelet Count 179 X10*3/uL (160-400); Red Blood Count 4.29 X10*6/uL (4.60-5.80); Red Cell Distribution Width 12.5 % (11.0-16.0); White Blood Count 10.7 X10*3/uL (4.8-10.8)
[2021-05-07 07:21] VITALS: BP 144/85; PULSE 54; RESP 17; TEMP 36.3; O2SAT 96
[2021-05-07 07:25] LABS: Anion Gap 10 (12-20); Blood Urea Nitrogen 7 mg/dL (9-16); Calcium 8.4 mg/dL (8.4-10.2); Carbon Dioxide 29 mmol/L (22-29); Chloride 103 mmol/L (96-108); Creatinine Clr Calc Pharmacy 79.6; Estimated Glomerular Filt Rate > 60; Glucose Random 110 mg/dL (60-115); Potassium 3.5 mmol/L (3.3-5.1); Sodium 138 mmol/L (135-145)
--- NOTE | 2021-05-07 09:11 | P.PNGS_ITS ---
Subjective Subjective Date of Service: 05/07/21 Interval history: feels much better says he does not have pain anymore Physical Exam Vital Signs: Vital Signs: Last Vital Signs Temp 97.3 F 05/07/21 07:21 Pulse 54 05/07/21 07:21 Resp 17 05/07/21 07:21 BP 144/85 H 05/07/21 07:21 Pulse Ox 96 05/07/21 07:21 Body Mass Index 34.9 Laboratory Results - last 24 hr 05/06/21 05/06/21 05/06/21 11:30 11:30 11:30 WBC 12.6 H RBC 4.61 Hgb 15.3 Hct 44.0 MCV 95.4 MCH 33.2 H MCHC 34.8 RDW 12.7 Plt Count 187 MPV 12.0 Immature Gran % (A uto) 0.4 Neut % (Auto) 75.4 H Lymph % (Auto) 12.7 L [place] % (Auto) 9.4 Eos % (Auto) 1.7 Baso % (Auto) 0.4 Lymph # (Auto) 1.6 [place] # (Auto) 1.2 Eos # (Auto) 0.2 Baso # (Auto) 0.1 Abs Immat Gran (au to) 0.05 H Absolute Neuts (au to) 9.5 H Absolute Nucleated RBC 0.000 Nucleated RBC % (a uto) 0.0 Sodium 139 Potassium 4.4 D Chloride 102 Carbon Dioxide 29 Anion Gap 12 BUN 11 Creatinine 1.08 Estim Creat Clear Calc 75.2 Estimated GFR > 60 Random Glucose 150 H Lactic Acid Calcium 9.2 Magnesium 2.0 Total Bilirubin 1.1 H Direct Bilirubin 0.4 AST 22 ALT 26 Alkaline Phosphata se 81 Total Protein 6.8 Albumin 4.1 Lipase 45 Urine Color Urine Appearance Urine pH Ur Specific Gravit y Urine Protein Urine Glucose (UA) Urine Ketones Urine Blood Urine Nitrite Ur Leukocyte Carline ase COVID-19 (CARLEE) COVID-19 Clin Com 05/06/21 05/06/21 05/06/21 14:25 14:25 21:33 WBC RBC Hgb Hct MCV MCH MCHC RDW Plt Count MPV Immature Gran % (A uto) Neut % (Auto) Lymph % (Auto) [place] % (Auto) Eos % (Auto) Baso % (Auto) Lymph # (Auto) [place] # (Auto) Eos # (Auto) Baso # (Auto) Abs Immat Gran (au to) Absolute Neuts (au to) Absolute Nucleated RBC Nucleated RBC % (a uto) Sodium Potassium Chloride Carbon Dioxide Anion Gap BUN Creatinine Estim Creat Clear Calc Estimated GFR Random Glucose Lactic Acid 1.0 Calcium Magnesium Total Bilirubin Direct Bilirubin AST ALT Alkaline Phosphata se Total Protein Albumin Lipase Urine Color YELLOW Urine Appearance CLEAR Urine pH 6.0 Ur Specific Gravit y 1.010 Urine Protein NEG Urine Glucose (UA) NEG Urine Ketones NEG Urine Blood NEG Urine Nitrite NEG Ur Leukocyte Carline ase NEG COVID-19 (CARLEE) Negative COVID-19 Clin Com See Note 05/07/21 05/07/21 06:38 06:38 WBC 10.7 RBC 4.29 L Hgb 14.1 Hct 41.4 L MCV 96.5 MCH 32.9 MCHC 34.1 RDW 12.5 Plt Count 179 MPV 12.3 Immature Gran % (A uto) 0.6 H Neut % (Auto) 59.1 Lymph % (Auto) 28.2 [place] % (Auto) 8.7 Eos % (Auto) 3.0 Baso % (Auto) 0.4 Lymph # (Auto) 3.0 [place] # (Auto) 0.9 Eos # (Auto) 0.3 Baso # (Auto) 0.0 Abs Immat Gran (au to) 0.06 H Absolute Neuts (au to) 6.3 Absolute Nucleated RBC 0.000 Nucleated RBC % (a uto) 0.0 Sodium 138 Potassium 3.5 D Chloride 103 Carbon Dioxide 29 Anion Gap 10 L BUN 7 L Creatinine 1.02 Estim Creat Clear Calc 79.6 Estimated GFR > 60 Random Glucose 110 Lactic Acid Calcium 8.4 D Magnesium Total Bilirubin Direct Bilirubin AST ALT Alkaline Phosphata se Total Protein Albumin Lipase Urine Color Urine Appearance Urine pH Ur Specific Gravit y Urine Protein Urine Glucose (UA) Urine Ketones Urine Blood Urine Nitrite Ur Leukocyte [place]line ase COVID-19 (CARLEE) COVID-19 Clin Com Const: General: comfortable and no acute distress Resp: Effort & Inspection: normal respiratory effort Cardio: Rhythm: regular rhythm GI: Other: no significant tenderness Palpation (GI): Soft to palpation, not firm and no guarding Progress Note: A&P Assessment and plan (1) Diverticulitis: Status: Acute Assessment and Plan: he feels much better no signficant pain or tenderness WBC now normal will keep on clear liquids today, plan to advance tomorrow continue IV abx he understands the plan Fall Risk Details Current Medications: Current Medications Generic Name Dose Route Start Last Admin Trade Name Freq PRN Reason Stop Dose Admin Heparin Sodium (Porcine) 5,000 unit 05/06/21 17:00 05/07/21 05:23 Heparin Sodium,Porcine 5,000 Unit/Ml Vial SUBCUT 5,000 unit Q12H RENÉE Administration Piperacillin Sod/Tazobactam 50 mls @ 100 mls/hr 05/06/21 20:00 05/07/21 08:51 Sod 3.375 gm/ Sodium Chloride IV 100 mls/hr Q6H RENÉE Administration Morphine Sulfate 3 mg 05/06/21 14:17 05/06/21 19:07 Morphine Sulfate 4 Mg/Ml Cartridge IVPUSH 3 mg Q3H PRN Administration Pain, Severe (Pain Scale 7-10) Ondansetron HCl 4 mg 05/06/21 14:22 Ondansetron Hcl 4 Mg/2 Ml Vial IVPUSH Q8H PRN nausea Oxycodone HCl 10 mg 05/06/21 16:32 Oxycodone Hcl Immed Release 5 Mg Tablet PO Q4H PRN Pain, Moderate (Pain Scale 4-6 Pharmacy Consult 1 each 05/06/21 13:56 Consult Rx Perform Med Rec MISCELLANE ONCE PRN Consult order Sodium Chloride 3 ml 05/06/21 16:00 05/06/21 22:47 0.9 % Sodium Chloride Flush 3 Ml Syringe IVFLUSH 3 ml QSHIFT RENÉE Administration Time Spent With Patient Time: Total time spent is greater than 50% in coordination of care (as documented) at patient's floor/unit and/or counseling patient: Time with patient: 15 - 24 minutes Procedures Date of Service Date of Service: 05/07/21 Quality Stroke Does the patient have a stroke diagnosis?: No VTE Prior VTE?: No VTE Risk Level:: Surgical - high VTE Device Contraindication: N/A - Device Ordered VTE Drug Contraindication: N/A - Med Ordered
[2021-05-07] MEDS: 0.9 % Sodium Chloride Flush 3 ML SYRINGE IVFLUSH ×2 (09:32→17:19)
--- NOTE | 2021-05-07 11:33 | MHC.CM.PN ---
nurse manager of case note ELECTRONIC MEDICAL RECORD REVIEWED CASE DISCUSSED WITH STAFF NURSE AND ON MULTIPLE DISCIPLIANRY ROUNDS, PATIENT TO BE DISCHARGED TODAY. DISCHARGE PLAN HOME - WITH FAMILY NO SERVICES PCP DR [facility]
[2021-05-07] MEDS: oxyCODONE HCl Immed Release 5 MG TABLET 10 MG PO (13:26)
[2021-05-07 15:35] VITALS: BP 131/82; PULSE 47; RESP 19; TEMP 36.2; O2SAT 98
[2021-05-08] VITALS: BP 163/90; PULSE 100; RESP 16; TEMP 36.4; O2SAT 94
[2021-05-08] MEDS: 0.9 % Sodium Chloride Flush 3 ML SYRINGE IVFLUSH ×2 (00:49→08:52)
[2021-05-08] MEDS: Piperacillin Sodium/Tazobactam 3.375 GM in 0.9 % Sodium Chloride 50 ML IV ×2 (01:59→08:51)
[2021-05-08] MEDS: Heparin Sodium,Porcine 5,000 UNIT/ML VIAL 5000 UNIT SUBCUT (05:36)
[2021-05-08 07:45] VITALS: BP 141/92; PULSE 55; RESP 16; TEMP 36.1; O2SAT 95
--- NOTE | 2021-05-08 07:55 | P.PNGS_ITS ---
Subjective Subjective Date of Service: 05/08/21 Interval history: Bishop Brown feels much improved this morning with no abdominal pain, nausea or vomiting. He is tolerating the clear liquids and would like to go home. Physical Exam Vital Signs: Vital Signs: Last Vital Signs Temp 96.9 F 05/08/21 07:45 Pulse 55 05/08/21 07:45 Resp 16 05/08/21 07:45 BP 141/92 H 05/08/21 07:45 Pulse Ox 95 05/08/21 07:45 Body Mass Index 34.9 Const: General: cooperative, comfortable, no acute distress, alert and awake Resp: Effort & Inspection: normal respiratory effort GI: Other: soft, non-distended, non-tender, normal bowel sounds, no rebound or guarding Skin: Other: warm, dry, no rash Extrem: General: Yes no clubbing, cyanosis or edema Progress Note: A&P Assessment and plan (1) Diverticulitis: Status: Acute Assessment and Plan: Patient is much improved following microperforation of a sigmoid diverticulum. Abdominal examination is benign this morning with no peritoneal signs. I will advance to a soft/low residue diet. If well tolerated may be discharged to home after lunch. Fall Risk Details Current Medications: Current Medications Generic Name Dose Route Start Last Admin Trade Name Freq PRN Reason Stop Dose Admin Heparin Sodium (Porcine) 5,000 unit 05/06/21 17:00 05/08/21 05:36 Heparin Sodium,Porcine 5,000 Unit/Ml Vial SUBCUT 5,000 unit Q12H RENÉE Administration Piperacillin Sod/Tazobactam 50 mls @ 100 mls/hr 05/06/21 20:00 05/08/21 02:50 Sod 3.375 gm/ Sodium Chloride IV Infused Q6H RENÉE Infusion Morphine Sulfate 3 mg 05/06/21 14:17 05/06/21 19:07 Morphine Sulfate 4 Mg/Ml Cartridge IVPUSH 3 mg Q3H PRN Administration Pain, Severe (Pain Scale 7-10) Ondansetron HCl 4 mg 05/06/21 14:22 Ondansetron Hcl 4 Mg/2 Ml Vial IVPUSH Q8H PRN nausea Oxycodone HCl 10 mg 05/06/21 16:32 05/07/21 13:26 Oxycodone Hcl Immed Release 5 Mg Tablet PO 10 mg Q4H PRN Administration Pain, Moderate (Pain Scale 4-6 Pharmacy Consult 1 each 05/06/21 13:56 Consult Rx Perform Med Rec MISCELLANE ONCE PRN Consult order Sodium Chloride 3 ml 05/06/21 16:00 05/08/21 00:49 0.9 % Sodium Chloride Flush 3 Ml Syringe IVFLUSH 3 ml QSHIFT RENÉE Administration Time Spent With Patient Time: Total time spent is greater than 50% in coordination of care (as sonido hyed) at patient's floor/unit and/or counseling patient: Time with patient: 15 - 24 minutes Procedures Date of Service Date of Service: 05/08/21 Quality Stroke Does the patient have a stroke diagnosis?: No VTE Prior VTE?: No VTE Risk Level:: Surgical - high VTE Device Contraindication: N/A - Device Ordered VTE Drug Contraindication: N/A - Med Ordered
--- NOTE | 2021-05-08 13:31 | MHC.CM.PN ---
Patient has been medically cleared for dc to home today, no services.
--- NOTE | 2021-05-10 17:15 | PM.DS ---
DS: Providers Provider Date of Service: 05/10/21 Date of admission: 05/06/21 14:17 Primary care physician: Doug Prieto MD DS: Diagnosis Discharge Diagnosis (1) Diverticulitis: Status: Acute Problem details: 60M admitted on April via the ED for lower abdominal pain. He had a CT scan showing inflammatory changes in the sigmoid colon c/w acute diverticulitis with a microperforation. He was started on iv Zosyn and kept on clear liquids. He improved with these measures. He remained afebrile during his entire stay. He had a very benign exam and had resolution of pain and tenderness. His idet was advanced to regular on May 08. He continued to tolerate this so he was discharged later that day. DS: Medications Discharge Medications Home Medications: Previous Rx's Medication Instructions Recorded amoxicillin-pot clavulanate 1 tab PO BID #14 tab 05/07/21 [Augmentin] DS: Summary Time Spent with Patient Time attestation: Total time spent providing and/or coordinating discharge services: Discharge coordination time: Less than 30 minutes Quality: Stroke Does the patient have a stroke diagnosis?: No Physical Exam Vital Signs: Vital Signs: Last Vital Signs Temp 96.9 F 05/08/21 07:45 Pulse 55 05/08/21 07:45 Resp 16 05/08/21 07:45 BP 141/92 H 05/08/21 07:45 Pulse Ox 95 05/08/21 07:45 Body Mass Index 34.9 Const: General: comfortable and no acute distress Orientation/consciousness: patient oriented x3 Neck: Neck: Yes no lymphadenopathy Resp: Auscultation: clear to auscultation bilaterally Cardio: Rhythm: regular rhythm GI: Palpation (GI): Soft to palpation, nontender and no guarding Neuro: General: patient oriented x3 DS: Data Data Completed and Pending Labs on day of discharge: Preliminary micro results at discharge 05/06/21 14:28 Blood Culture - Preliminary Blood - Venous No growth after 48 hours. 05/06/21 14:25 Blood Culture - Preliminary Blood - Venous No growth after 48 hours. Discharge Plan Discharge Patient Disposition: Home, Self-Care Discharge Diagnosis: acute diverticulitis Referrals: Eliezer Aguayo MD [Physician] - 1 Week Po,Doug Maharaj MD [Primary Care Provider] - 1 Week Discharge Medications: New amoxicillin-pot clavulanate [Augmentin] 875-125 mg tablet 1 tab PO BID Qty: 14 RF: 0 Discontinued oxycodone-acetaminophen [Percocet] 5-325 mg tablet 1 tab PO TID PRN (Reason: pain) Qty: 9 RF: 0 Discharge Orders: Discharge Order (Routine); Ordered 05/08/21 Ordered By: Mervin Esteves Activity on Discharge: As tolerated Stand Alone Forms: Patient Portal Discharge page Care Plan Goals: watch for signs of recurrent diverticulitis Health Concerns: watch for recurrent diverticulitis Plan of Treatment: oral antibiotics with Augmentin eventual ffup colonoscopy Assessment: doing much better after treatment Discharge Date/Time: 05/08/21 14:01
== END 2021-05-08 14:01 | disposition home or self-care (01) | DRG 244 ==
LOC: HO.ED 14:06 → HO.S3 15:00
PROVIDERS: Admitting Provider Surgery; Emergency Provider Emergency Medicine; PCP Internal Medicine; Visit Provider Surgery
DX: K57.20 Diverticulitis of large intestine with perforation and abscess without bleeding (principal); D72.829 Elevated white blood cell count, unspecified; Z20.822 Contact with and (suspected) exposure to COVID-19
CPT/HCPCS: 36415; 74177; 80048; 80076; 81003; 83605; 83690; 83735; 85025; 87040; 87635; 99285; J1885; J2270; J2405; J2543; Q9967

== ENCOUNTER → 2021-05-19 14:29 | Outpatient (BNVA) | payer OTHER, SELFPAY | PROVIDERS: PCP Internal Medicine; Referring Provider Internal Medicine; Visit Provider Surgery | DX: K57.92 Diverticulitis of intestine, part unspecified, without perforation or abscess without bleeding (principal) | CPT/HCPCS: 99212 ==

== ENCOUNTER 2023-05-26 12:34 | Emergency (ER) | payer OTHER, SELFPAY ==
[2023-05-26 12:42] VITALS: BP 195/89; PULSE 46; RESP 20; TEMP 36.5; O2SAT 96; BMI 34.1
--- NOTE | 2023-05-26 12:43 | ED.GENADULT ---
HPI - General Adult General Chief complaint: Abdominal Pain Stated complaint: lower abd pain Time Seen by Provider: 05/26/23 12:59 Related Data Previous Rx's ?Medication ?Instructions ?Recorded amoxicillin 875 mg-potassium 1 tab PO BID #14 tabs 05/07/21 clavulanate 125 mg tablet (Augmentin) ibuprofen 400 mg tablet 400 mg PO Q6H PRN pain #20 tabs 05/26/23 ondansetron 4 mg disintegrating 4 mg PO TID PRN nausea and 05/26/23 tablet vomiting 5 days #10 tabs oxycodone 5 mg tablet 5 mg PO Q8H PRN pain #7 tabs 05/26/23 Allergies Allergy/AdvReac Type Severity Reaction Status Date / Time No Known Allergies Allergy Verified 05/19/21 14:40 [facility] Past Medical History Medical History Diverticulitis Kidney stones Kidney stones Social History Social History Household Members: Family Housing: House Do you presently have visiting nurse or other home services: No Alcohol intake: never Patient Tobacco Use Status: Never used Tobacco Advance Directives: Yes Advance Directives Information Provided: Yes Advance Directives on File: No Advance Directives Date on File: 05/06/21 service: Yes (2YRS [employer] [place]) Current occupational status: employed Physical Exam ED Vital Signs: BMI result Body Mass Index 34.1 Course Course Course Narrative: This is an RME: Additional HPI, ROS, PE not included below will be deferred to primary provider. Patient is a 62 year old male with a past medical history of kidney stones and diverticulitis with microperforation presents with severe left lower quadrant abdominal pain since this morning. Patient has low heart rate in 40s and elevated bp. Patient is visibly uncomfortable and sweating. Plan: labs, imaging, pain management Medications Administered Discontinued Medications Generic Name Dose Route Start Last Admin Trade Name Freq PRN Reason Stop Dose Admin Hydromorphone HCl 0.5 mg 05/26/23 13:04 05/26/23 13:15 Hydromorphone Hcl 0.5 Mg/0.5 Ml Syringe IVPUSH 05/26/23 13:05 0.5 mg ONCE ONE Administration Protocol Sodium Chloride 1,000 mls @ 999 mls/hr 05/26/23 12:45 05/26/23 13:14 Ns IV 05/26/23 13:45 999 mls/hr .Q1H1M RENÉE Administration Ketorolac Tromethamine 30 mg 05/26/23 13:05 05/26/23 13:15 Ketorolac Tromethamine 30 Mg/Ml Vial IVPUSH 05/26/23 13:06 30 mg ONCE ONE Administration Morphine Sulfate 4 mg 05/26/23 12:41 05/26/23 13:16 Morphine Sulfate 4 Mg/Ml Cartridge IVPUSH 05/26/23 12:42 Not Given ONCE ONE Protocol Medical Decision Making Lab Data 05/26/23 13:12 05/26/23 13:12 Labs: Lab Results 05/26/23 05/26/23 Range/Units 13:12 15:57 WBC 8.2 (4.8-10.8) X10*3/uL RBC 5.42 (4.60-5.80) X10*6/uL Hgb 17.0 (14.0-18.0) g/dl Hct 49.7 (42.0-52.0) % MCV 91.7 (80.0-98.0) fL MCH 31.4 (27.0-33.0) pg MCHC 34.2 (31.0-36.0) g/dl RDW 13.2 (11.0-16.0) % Plt Count 202 (160-400) X10*3/uL MPV 12.3 (9.4-12.4) fL Immature Gran % (Auto) 0.4 (0.0-0.4) % Neut % (Auto) 52.8 (45-73) % Lymph % (Auto) 32.8 (20-40) % [place] % (Auto) 8.6 (2-11) % Eos % (Auto) 4.5 H (0-4) % Baso % (Auto) 0.9 (0-2) % Lymph # (Auto) 2.7 (1.2-4.9) X10*3/uL [place] # (Auto) 0.7 (0.1-1.2) X10*3/uL Eos # (Auto) 0.4 (0.0-0.4) X10*3/uL Baso # (Auto) 0.1 (0.0-0.2) X10*3/uL Abs Immat Gran (auto) 0.03 (0.00-0.03) X10*3/uL Absolute Neuts (auto) 4.3 (2.0-8.3) x10*3/uL Absolute Nucleated RBC 0.000 (0.0-0.012) X10*3/uL Nucleated RBC % (auto) 0.0 (0.0-0.2) /100WBC Sodium 144 (135-145) mmol/L Potassium 3.7 (3.3-5.1) mmol/L Chloride 106 (96-108) mmol/L Carbon Dioxide 25 (22-29) mmol/L Anion Gap 17 (12-20) BUN 10 (9-16) mg/dL Creatinine 1.39 (0.5-1.4) mg/dL Estim Creat Clear Calc 56.2 Estimated GFR 51 Random Glucose 138 H (60-115) mg/dL Calcium 10.0 D (8.4-10.2) mg/dL Magnesium 2.0 (1.6-2.6) mg/dL Total Bilirubin 1.3 H (0.0-1.0) mg/dL AST 20 (5-37) U/L ALT 15 (0-40) U/L Alkaline Phosphatase 78 (39-117) U/L Total Protein 7.7 (6.5-8.0) g/dL Albumin 4.4 (3.5-5.0) g/dL Lipase 15 (8-78) U/L Urine Color Yellow Urine Appearance Clear Urine pH 6.5 (5.0-9.0) Ur Specific [place] 1.015 (1.005-1.025) Urine Protein Trace (Neg-Trace) mg/dL Urine Glucose (UA) Negative (Negative) mg/dL Urine Ketones Negative (Negative) mg/dL Urine Blood Large (3+) H (Negative) Urine Nitrite Negative (Negative) Ur Leukocyte Esterase Negative (Negative) Urine RBC >20 H (0-2) /HPF Urine WBC 0-5 (0-5) /HPF Ur Squamous Epith Cells 0-2 (0-2) /HPF Urine Bacteria None Seen (None Seen) Hyaline Casts 0-2 (0-2) /LPF Discharge Plan Discharge Clinical Impression: Kidney stones, Abdominal pain, Hematuria Patient Disposition: Home, Self-Care Instructions: Hematuria (ED), Abdominal Pain (ED) Prescriptions: New ibuprofen 400 mg tablet 400 mg PO Q6H PRN (Reason: pain) Qty: 20 0RF ondansetron 4 mg tablet,disintegrating 4 mg PO TID PRN (Reason: nausea and vomiting) 5 Days Qty: 10 0RF oxycodone 5 mg tablet 5 mg PO Q8H PRN (Reason: pain) Qty: 7 0RF Rx Instructions: Partial Fill upon patient request. No Action amoxicillin-pot clavulanate [Augmentin] 875-125 mg tablet 1 tab PO BID Qty: 14 0RF Referrals: Divya Cheung MD [Physician] - 05/30/23 Po,Doug Maharaj MD [Primary Care Provider] - Interventions: ED Discharge Assessment Last Done: 05/26/23 17:04 Discharge Date/Time: 05/26/23 17:04 Print Language: Frisian
--- NOTE | 2023-05-26 13:08 | ED.ABDPAIN ---
HPI - Abdominal Pain General Chief Complaint: Abdominal Pain Stated Complaint: lower abd pain Time Seen by Provider: 05/26/23 12:59 History of Present Illness HPI narrative: Patient is a 62-year-old male with a history of kidney stones in the past presents today with having extreme abdominal pain. It is over the left flank area rating down to the left lower quadrant. Very similar to previous bouts of kidney stone. No history of dissections in the past. No abdominal surgery in the past. No fever no chills. No chest pain or shortness of breath. No nausea no vomiting no diarrhea. Patient from home. No allergies to medication. Related Data Previous Rx's Medication Instructions Recorded amoxicillin 875 mg-potassium 1 tab PO BID #14 tabs 05/07/21 clavulanate 125 mg tablet (Augmentin) ibuprofen 400 mg tablet 400 mg PO Q6H PRN pain #20 tabs 05/26/23 ondansetron 4 mg disintegrating 4 mg PO TID PRN nausea and 05/26/23 tablet vomiting 5 days #10 tabs oxycodone 5 mg tablet 5 mg PO Q8H PRN pain #7 tabs 05/26/23 Allergies Allergy/AdvReac Type Severity Reaction Status Date / Time No Known Allergies Allergy Verified 05/19/21 14:40 Review of Systems Review of Systems Positive abdominal pain to the left flank area Yes all other systems are reviewed and are negative PMFSH Past Medical History Attestation statement: The following information was validated with the patient. Medical History Diverticulitis Kidney stones Kidney stones Social History Social History Household Members: Family Housing: House Do you presently have visiting nurse or other home services: No Alcohol intake: never Patient Tobacco Use Status: Never used Tobacco Advance Directives: Yes Advance Directives Information Provided: Yes Advance Directives on File: No Advance Directives Date on File: 05/06/21 service: Yes (2YRS [employer]ES IN [place]) Current occupational status: employed Physical Exam ED Vital Signs: Vital Signs - 24 hr 05/26/23 12:42 05/26/23 15:54 Temperature 97.7 F 97.8 F Pulse Rate 46 L 43 L Respiratory Rate 20 16 Blood Pressure 195/89 H 165/87 H Pulse Oximetry 96 98 Oxygen Delivery Method Room Air Room Air BMI result Body Mass Index 34.1 Appearance: Alert. Oriented X3. No acute distress. Eyes: Pupils equal, round and reactive to light. ENT: Pharynx normal. Neck: Normal inspection. Neck supple. No lymph nodes noted. No crepitus CVS: Normal heart rate and rhythm. Pulses normal. Normal S1 and S2 Respiratory: No respiratory distress. Breath sounds normal. No Wheezing. No rales Abdomen: Soft and nontender. No rigidity. No distention. good BS x4 Skin: Skin warm and dry. Normal skin color. Normal skin turgor. Extremities: No lower extremity edema. Neurovascular intact to all extremities. No Lacerations. No Rash Neuro: Oriented X 3. No motor deficit. No sensory deficit. Moving all extermities. No slurred speech Medical Decision Making Medical Decision Making MDM Narrative: Patient's pain consistent with kidney stone. Has extreme pain over the flank area very abrupt in onset with previous history of kidney stones in the past. Positive blood in the urine. However patient's CT scan of the abdomen was negative for any acute ureteral stone. Patient has no urinary tract infection. On CT showed no evidence of diverticulitis. No abscess no perforation or obstruction. Pain is control after pain medication. Will discharge patient home. However the chance of having a passed stone versus blood in the urine still exist. Will have patient follow-up with urology on an outpatient basis. We will give pain medication. In stable condition. Differential Diagnosis Differential Diagnoses: The differential diagnosis associated with the presentation includes Renal colic, passed stone, diverticulitis, abscess, perforation, appendicitis Lab Data [facility] Lab Attestation statement: I reviewed the patient's lab results. 05/26/23 13:12 05/26/23 13:12 Labs: Lab Results 05/26/23 05/26/23 05/26/23 Range/Units 13:12 13:12 15:57 WBC 8.2 (4.8-10.8) X10*3/uL RBC 5.42 (4.60-5.80) X10*6/uL Hgb 17.0 (14.0-18.0) g/dl Hct 49.7 (42.0-52.0) % MCV 91.7 (80.0-98.0) fL MCH 31.4 (27.0-33.0) pg MCHC 34.2 (31.0-36.0) g/dl RDW 13.2 (11.0-16.0) % Plt Count 202 (160-400) X10*3/uL MPV 12.3 (9.4-12.4) fL Immature Gran % (Auto) 0.4 (0.0-0.4) % Neut % (Auto) 52.8 (45-73) % Lymph % (Auto) 32.8 (20-40) % [place] % (Auto) 8.6 (2-11) % Eos % (Auto) 4.5 H (0-4) % Baso % (Auto) 0.9 (0-2) % Lymph # (Auto) 2.7 (1.2-4.9) X10*3/uL [place] # (Auto) 0.7 (0.1-1.2) X10*3/uL Eos # (Auto) 0.4 (0.0-0.4) X10*3/uL Baso # (Auto) 0.1 (0.0-0.2) X10*3/uL Abs Immat Gran (auto) 0.03 (0.00-0.03) X10*3/uL Absolute Neuts (auto) 4.3 (2.0-8.3) x10*3/uL Absolute Nucleated RBC 0.000 (0.0-0.012) X10*3/uL Nucleated RBC % (auto) 0.0 (0.0-0.2) /100WBC Sodium 144 (135-145) mmol/L Potassium 3.7 (3.3-5.1) mmol/L Chloride 106 (96-108) mmol/L Carbon Dioxide 25 (22-29) mmol/L Anion Gap 17 (12-20) BUN 10 (9-16) mg/dL Creatinine 1.39 (0.5-1.4) mg/dL Estim Creat Clear Calc 56.2 Estimated GFR 51 Random Glucose 138 H (60-115) mg/dL Calcium 10.0 D (8.4-10.2) mg/dL Magnesium 2.0 (1.6-2.6) mg/dL Total Bilirubin 1.3 H (0.0-1.0) mg/dL AST 20 (5-37) U/L ALT 15 (0-40) U/L Alkaline Phosphatase 78 (39-117) U/L Total Protein 7.7 (6.5-8.0) g/dL Albumin 4.4 (3.5-5.0) g/dL Lipase 15 (8-78) U/L Urine Color Yellow Urine Appearance Clear Urine pH 6.5 (5.0-9.0) Ur Specific [place] 1.015 (1.005-1.025) Urine Protein Trace (Neg-Trace) mg/dL Urine Glucose (UA) Negative (Negative) mg/dL Urine Ketones Negative (Negative) mg/dL Urine Blood Large (3+) H (Negative) Urine Nitrite Negative (Negative) Ur Leukocyte Esterase Negative (Negative) Urine RBC >20 H (0-2) /HPF Urine WBC 0-5 (0-5) /HPF Ur Squamous Epith Cells 0-2 (0-2) /HPF Urine Bacteria None Seen (None Seen) Hyaline Casts 0-2 (0-2) /LPF Radiology Impression Discussion of test interpretation with radiology: I have reviewed the radiologist's reading. Chronic Conditions Previous history of kidney stone Medications Administered Discontinued Medications Generic Name Dose Route Start Last Admin Trade Name Freq PRN Reason Stop Dose Admin Hydromorphone HCl 0.5 mg 05/26/23 13:04 05/26/23 13:15 Hydromorphone Hcl 0.5 Mg/0.5 Ml Syringe IVPUSH 05/26/23 13:05 0.5 mg ONCE ONE Administration Protocol Sodium Chloride 1,000 mls @ 999 mls/hr 05/26/23 12:45 05/26/23 13:14 Ns IV 05/26/23 13:45 999 mls/hr .Q1H1M RENÉE Administration Ketorolac Tromethamine 30 mg 05/26/23 13:05 05/26/23 13:15 Ketorolac Tromethamine 30 Mg/Ml Vial IVPUSH 05/26/23 13:06 30 mg ONCE ONE Administration Morphine Sulfate 4 mg 05/26/23 12:41 05/26/23 13:16 Morphine Sulfate 4 Mg/Ml Cartridge IVPUSH 05/26/23 12:42 Not Given ONCE ONE Protocol Discharge Plan Discharge Clinical Impression: Kidney stones, Abdominal pain, Hematuria Patient Disposition: Home, Self-Care Instructions: Hematuria (ED), Abdominal Pain (ED) Prescriptions: New ibuprofen 400 mg tablet 400 mg PO Q6H PRN (Reason: pain) Qty: 20 0RF ondansetron 4 mg tablet,disintegrating 4 mg PO TID PRN (Reason: nausea and vomiting) 5 Days Qty: 10 0RF oxycodone 5 mg tablet 5 mg PO Q8H PRN (Reason: pain) Qty: 7 0RF Rx Instructions: Partial Fill upon patient request. No Action amoxicillin-pot clavulanate [Augmentin] 875-125 mg tablet 1 tab PO BID Qty: 14 0RF Referrals: Divya Cheung MD [Physician] - 05/30/23 Po,Doug Maharaj MD [Primary Care Provider] -
--- NOTE | 2023-05-26 14:19 | PC.NURSE ---
appears much more comfortable at this time, awaiting ct scan results. states he is feeling much better after pain medications
[2023-05-26 15:54] VITALS: BP 165/87; PULSE 43; RESP 16; TEMP 36.6; O2SAT 98
== END 2023-05-26 17:04 | disposition home or self-care (01) ==
PROVIDERS: Emergency Provider Emergency Medicine Emergency Medical Services; PCP Internal Medicine
DX: N20.0 Calculus of kidney (principal); R31.9 Hematuria, unspecified; R10.2 Pelvic and perineal pain; Z79.899 Other long term (current) drug therapy
CPT/HCPCS: 36415; 74176; 80053; 81001; 83690; 83735; 85025; 96374; 96375; 99284; J1170; J1885

== ENCOUNTER 2025-09-18 01:00 | Inpatient (IN) | payer OTHER, SELFPAY ==
[2025-09-18] VITALS (8 sets, daily range): BP systolic 123–158; BP diastolic 69–92; PULSE 44–66; RESP 12–20; TEMP 36.1–36.8; O2SAT 95–99; BMI 34.1; BMI 32.9
--- NOTE | 2025-09-18 | ECG_ITS ---
Test Reason : BRADYCARDIA Blood Pressure : */* mmHG Vent. Rate : 47 BPM Atrial Rate : 47 BPM P-R Int : 180 ms QRS Dur : 102 ms QT Int : 456 ms P-R-T Axes : 30 -48 13 degrees QTcB Int : 403 ms Sinus bradycardia Left anterior fascicular block Abnormal ECG No previous ECGs available Referred By: Markel Ziegler Electronically Signed By: ADRIANE VELEZ
--- NOTE | ~2025-09-18 | CT_ITS ---
CLINICAL HISTORY: left renal colic vs divertic. LLQ pain CT abdomen and pelvis without contrast Comparison: CT/REG/SD/SR - CT ABDOMEN PELVIS WITHOUT IV CONTRAST - 05/26/23 13:53 EDT Findings: CT abdomen: No infiltrates within the lung bases. Scattered degenerative changes are relatively mild within the thoracolumbar spine. No acute fracture bony destructive changes identified. Teom-bh-jgjgcpel left hydronephrosis with left hydroureter. Multiple small stones are seen within the left kidney measuring up to 3 mm in size. There is left perinephric stranding and left periureteral edema. There is a 8 x 5 mm calculus at the level of the left ureteral orifice. On the prior examination, there was a 4 x 3 mm calculus at the left ureterovesicular junction. Focal periureteral edema as well as edema of the left ureteral orifice. Several small calculi seen within the right kidney measuring 2 mm in size or less. 1 cm cyst within the lower pole of the right kidney. No hydronephrosis or right ureteral calculi identified. Unenhanced liver, spleen, pancreas, gallbladder, and adrenal glands are unremarkable. Small bowel loops are of normal caliber. CT pelvis: Appendix is normal. Numerous diverticuli seen throughout the colon. No findings of diverticulitis. Fat containing left inguinal hernia as on prior study with approximately 15 mm fascial defect. No free fluid or free air. IMPRESSION: 1. Nwxt-yu-jlpxhlli left hydronephrosis and left hydroureter secondary to a 8 x 5 mm calculus at the left ureteral orifice. Please note that on the patient's prior study, there was a 4 x 3 mm calculus at the left ureterovesicular junction. 2. Additional nonobstructing bilateral renal calculi. 3. Colonic diverticulosis without diverticulitis. This document has been electronically signed by: Akshat Valero MD on 09/18/2025 02:48:56
--- NOTE | ~2025-09-18 | US_ITS ---
EXAMINATION: US RETROPERITONEUM HISTORY: obstructive uropathy, left ureteral stone, hydro TECHNIQUE: Real-time grayscale ultrasound imaging of the kidneys was performed and images were reviewed. COMPARISON: Correlation is made with a CT of the abdomen and pelvis without contrast dated 09/18/2025. FINDINGS: Right kidney: The right kidney measures 9.7 x 5.8 x 5.4 cm. Renal parenchymal echotexture and thickness are normal. There is a 1.3 x 1.7 x 1.4 cm lower pole cyst. There is a 4 mm nonobstructing calculus at the lower pole. There is no hydronephrosis. Left Kidney: The left kidney measures 11.6 x 6.9 x 5.2 cm. Renal parenchymal echotexture and thickness are normal. There is a 5 mm cyst at the upper pole. There is a 3 mm nonobstructing calculus at the lower pole. There is mild hydronephrosis. There is a 6 mm calculus at the left UVJ as noted on CT. Ureteral jets were not identified. The urinary bladder measured 3.6 x 3.3 x 3.3 cm for an estimated volume of 21 mL. The prostate measures 4.3 x 4.2 x 5.0 cm, for an estimated volume of 50 mL. US/US retroperitoneal comp IMPRESSION: 1. Mild left hydronephrosis. 6 mm left UVJ calculus as noted on CT. 2. Bilateral nephrolithiasis as described. 3. Prostate volume of 50 mL. Electronically signed by: Nigel Hill MD 09/19/2025 11:28 AM EDT
--- NOTE | ~2025-09-18 | FL_ITS ---
EXAMINATION: FL GUIDANCE ONLY HISTORY: stent COMPARISON: Correlation CT of the abdomen and pelvis without contrast dated 09/18/2025. TECHNIQUE: Fluoroscopy time: 13 seconds. Cumulative Dose: 2.50 mGy. DAP: 106.81 uGym2 Images: 8. FINDINGS: Fluoroscopic spot films of the left abdomen demonstrate placement of a nephroureteral stent. FL/FL guidance in OR IMPRESSION: Fluoroscopy during procedure. Please see procedure report for additional information. Electronically signed by: Nigel Hill MD 09/22/2025 06:59 AM AMY
[2025-09-18 01:18] LABS: MANUAL DIFF FLAG NO
[2025-09-18 01:19] LABS: Hematocrit 47.6 % (42.0-52.0); Hemoglobin 15.8 g/dl (14.0-18.0); Imm Gran Abs Auto 0.03 X10*3/uL (0.00-0.03); Imm Gran Pct Auto 0.3 % (0.0-0.4); Lymphocytes Absolute Auto 2.3 X10*3/uL (1.2-4.9); Mean Corpuscular HGB Conc 33.2 g/dl (31.0-36.0); Mean Corpuscular Hemoglobin 31.4 pg (27.0-33.0); Mean Corpuscular Volume 94.6 fL (80.0-98.0); NRBC Abs Auto 0.000 X10*3/uL (0.0-0.012); NRBC Pct Auto 0.0 /100WBC (0.0-0.2); Platelet Count 198 X10*3/uL (160-400); Red Blood Count 5.03 X10*6/uL (4.60-5.80); White Blood Count 10.3 X10*3/uL (4.8-10.8)
[2025-09-18 01:33] LABS: Alanine Aminotransferase 17 U/L (0-40); Albumin Level 4.7 g/dL (3.5-5.0); Alkaline Phosphatase 78 U/L (39-117); Anion Gap 15 (12-20); Aspartate Amino Transferase 29 U/L (5-37); Blood Urea Nitrogen 22 mg/dL (9-16); Calcium 10.1 mg/dL (8.4-10.2); Carbon Dioxide 27 mmol/L (22-29); Chloride 106 mmol/L (96-108); Creatinine Clr Calc Pharmacy 43.0; Estimated Glomerular Filt Rate 39; Potassium 5.0 mmol/L (3.3-5.1); Sodium 143 mmol/L (135-145); Total Protein 7.6 g/dL (6.5-8.0)
--- OUTSIDE RECORDS SUMMARY | 2025-09-18 01:50 | XMS_ITS | Clinical Summary ---
Author Organization [facility] Address [address] [place] [address] Care Team Providers Care Housing Assistant Name Role Phone Unavailable Primary Care Provider Unavailabl e Social History Tobacco Use Types Packs/Day Years Used Date Smoking Tobacco: Never Assessed Sex and Gender Information Value Date Recorded Sex Assigned at Not on file Gender Identity Not on file Sexual Orientation Not on file Plan of Treatment Not on file
--- NOTE | 2025-09-18 01:58 | ED.GENADULT ---
HPI - General Adult General Chief complaint: Back Pain/Injury Stated complaint: kidney stones? Time Seen by Provider: 09/18/25 01:24 Source: patient Limitations: no limitations History of Present Illness ED Provider: Mattie Dhaliwal PA-C HPI narrative: 64-year-old male with a history of kidney stones and diverticulitis, presents with pain in times a day and a half. Patient developed left-sided low back pain with radiation to left lower quadrant. Unable to describe the nature of his discomfort. The pain has been intermittent, fluctuating in intensity. Patient has been using Motrin and Tylenol without relief of symptoms. Associated nausea, chills and subjective fevers, denies dysuria, hematuria. Denies diarrhea. Related Data Previous Rx's ?Medication ?Instructions ?Recorded amoxicillin 875 mg-potassium 1 tab PO BID #14 tabs 05/07/21 clavulanate 125 mg tablet (Augmentin) ibuprofen 400 mg tablet 400 mg PO Q6H PRN pain #20 tabs 05/26/23 ondansetron 4 mg disintegrating 4 mg PO TID PRN nausea and 05/26/23 tablet vomiting 5 days #10 tabs oxycodone 5 mg tablet 5 mg PO Q8H PRN pain #7 tabs 05/26/23 Allergies Allergy/AdvReac Type Severity Reaction Status Date / Time No Known Allergies Allergy Verified 09/18/25 01:05 Review of Systems Review of Systems: Yes all other systems are reviewed and are negative Constitutional: Constitutional: Reports chills, Denies fatigue and Reports fever(s) Cardiovascular: Cardiovascular: Denies chest pain and Denies dyspnea Respiratory: Respiratory: Denies dyspnea Gastrointestinal: Gastrointestinal: Reports abdominal pain, Reports nausea and Denies vomiting Genitourinary: Genitourinary: Denies hematuria, Denies dysuria and Reports flank pain Musculoskeletal: Musculoskeletal: Reports back pain Endocrine: Endocrine: Denies fatigue PMFSH Past Medical History Attestation statement: The following information was validated with the patient. Medical History Diverticulitis Kidney stones Kidney stones Social History Social History Household Members: Family Housing: House Do you presently have visiting nurse or other home services: No Alcohol intake: never Patient Tobacco Use Status: Never used Tobacco Smoked in Last 30 Days: No Use of substances other than those prescribed or required for medical reasons: No Advance Directives: No Advance Directives Date on File: 05/06/21 service: Yes (2YRS [employer] IN [place]) Current occupational status: employed Physical Exam ED Vital Signs: Vital Signs - 24 hr 09/18/25 01:02 09/18/25 02:24 09/18/25 03:07 Temperature 98.1 F 97.8 F Pulse Rate 64 54 52 Respiratory Rate 20 17 17 Blood Pressure 157/92 H 127/80 Pulse Oximetry 99 98 Oxygen Delivery Method Room Air Room Air BMI result Body Mass Index 34.1 Const Other: Alert appears uncomfortable Orientation/consciousness: patient oriented x3 Resp Effort & Inspection: normal respiratory effort Cardio Other: Normal peripheral perfusion GI Other: Some degree of tenderness mid left abdomen to mid lower, without guarding General: Yes CVA tenderness Back/Spine/Pelvis Other: CVA tenderness on left Back: CVA tenderness Skin Other: Warm dry no rash Neuro General: patient oriented x3, gait normal, no focal motor deficits and CN's II-XI intact bilaterally Psych Other: Cooperative Course Reevaluation(s) Reevaluation #1: The morphine did not really help the patient's pain, he is still nauseous, we will escalate to Dilaudid and give additional Zofran, starting Flomax, admitting the patient Medications Administered Discontinued Medications Generic Name Dose Route Start Last Admin Trade Name Freq PRN Reason Stop Dose Admin Sodium Chloride 1,000 mls @ 999 mls/hr 09/18/25 02:00 09/18/25 03:09 Ns IV 09/18/25 03:00 Infused .Q1H1M RENÉE Infusion Morphine Sulfate 4 mg 09/18/25 01:59 09/18/25 02:20 Morphine Sulfate 4 Mg/Ml Cartridge IVPUSH 09/18/25 02:00 4 mg ONCE ONE Administration Protocol Ondansetron HCl 4 mg 09/18/25 01:59 09/18/25 02:20 Ondansetron Hcl 4 Mg/2 Ml Vial IVPUSH 09/18/25 02:00 4 mg ONCE ONE Administration Medical Decision Making Medical Decision Making MDM Narrative: 64-year-old male with a history of kidney stones and diverticulitis, presents with pain in times a day and a half. Patient developed left-sided low back pain with radiation to left lower quadrant. Unable to describe the nature of his discomfort. The pain has been intermittent, fluctuating in intensity. Patient has been using Motrin and Tylenol without relief of symptoms. Associated nausea, chills and subjective fevers, denies dysuria, hematuria. Denies diarrhea. Problem: Age, kidney stones and diverticulitis History: Per patient I have considered the following differential diagnoses: Pyelonephritis, UTI, renal colic, diverticulitis Plan: Patient having back, flank and left lower abdominal discomfort, this is likely renal colic, however he does have some degree of focal pain in the left lower abdomen with palpation, could be diverticulitis. We will be obtaining a CT scan. Screening labs collected, he has a slight GER[place]IA, urine pending, we will be giving IV fluid, Zofran and morphine for pain. I am also concerned for potential pyelonephritis given CVA tenderness, although he is not complaining of any dysuria. I have independently reviewed the following tests: Labs: No leukocytosis, not anemic, no electrolyte abnormality, creatinine subtly elevated at 1.77 when compared to his creatinine from 2022, urine not infected no hematuria CT abdomen and pelvis:IMPRESSION: 1. [id number] left hydronephrosis and left hydroureter secondary to a 8 x 5 mm calculus at the left ureteral orifice. Please note that on the patient's prior study, there was a 4 x 3 mm calculus at the left ureterovesicular junction. 2. Additional nonobstructing bilateral renal calculi. 3. Colonic diverticulosis without diverticulitis. Differential Diagnosis Differential Diagnoses: The differential diagnosis associated with the presentation includes See medical decision-making Admission/Observation Consideration of admission/observation: Escalation of care including admission/observation considered We will admit Consult Healthcare Provider Management of the patient was discussed with: Hospitalist and [employer] We will require Urology during his admission Lab Data MDM Lab Attestation statement: I reviewed the patient's lab results. 09/18/25 01:12 09/18/25 01:12 Labs: Lab Results 09/18/25 09/18/25 Range/Units 01:12 02:23 WBC 10.3 (4.8-10.8) X10*3/uL RBC 5.03 (4.60-5.80) X10*6/uL Hgb 15.8 (14.0-18.0) g/dl Hct 47.6 (42.0-52.0) % MCV 94.6 (80.0-98.0) fL MCH 31.4 (27.0-33.0) pg MCHC 33.2 (31.0-36.0) g/dl RDW 12.7 (11.0-16.0) % Plt Count 198 (160-400) X10*3/uL MPV 12.3 (9.4-12.4) fL Immature Gran % (Auto) 0.3 (0.0-0.4) % Neut % (Auto) 62.1 (45-73) % Lymph % (Auto) 22.2 (20-40) % [place] % (Auto) 9.3 (2-11) % Eos % (Auto) 5.6 H (0-4) % Baso % (Auto) 0.5 (0-2) % Lymph # (Auto) 2.3 (1.2-4.9) X10*3/uL [place] # (Auto) 1.0 (0.1-1.2) X10*3/uL Eos # (Auto) 0.6 H (0.0-0.4) X10*3/uL Baso # (Auto) 0.1 (0.0-0.2) X10*3/uL Abs Immat Gran (auto) 0.03 (0.00-0.03) X10*3/uL Absolute Neuts (auto) 6.4 (2.0-8.3) x10*3/uL Absolute Nucleated RBC 0.000 (0.0-0.012) X10*3/uL Nucleated RBC % (auto) 0.0 (0.0-0.2) /100WBC Sodium 143 (135-145) mmol/L Potassium 5.0 (3.3-5.1) mmol/L Chloride 106 (96-108) mmol/L Carbon Dioxide 27 (22-29) mmol/L Anion Gap 15 (12-20) BUN 22 H (9-16) mg/dL Creatinine 1.77 H (0.5-1.4) mg/dL Estim Creat Clear Calc 43.0 Estimated GFR 39 Random Glucose 133 H (60-115) mg/dL Calcium 10.1 (8.4-10.2) mg/dL Total Bilirubin 0.9 (0.0-1.0) mg/dL AST 29 (5-37) U/L ALT 17 (0-40) U/L Alkaline Phosphatase 78 (39-117) U/L Total Protein 7.6 (6.5-8.0) g/dL Albumin 4.7 (3.5-5.0) g/dL Urine Color Yellow Urine Appearance Clear Urine pH 5.5 (5.0-9.0) Ur Specific [place] >= 1.030 H (1.005-1.025) Urine Protein 30 (1+) H (Neg-Trace) mg/dL Urine Glucose (UA) Negative (Negative) mg/dL Urine Ketones Negative (Negative) mg/dL Urine Blood Negative (Negative) Urine Nitrite Negative (Negative) Ur Leukocyte Esterase Negative (Negative) Urine RBC 0-2 (0-2) /HPF Urine WBC 0-5 (0-5) /HPF Ur Squamous Epith Cells 0-2 (0-2) /HPF Urine Bacteria None Seen (None Seen) Hyaline Casts 0-2 (0-2) /LPF Radiology Impression Discussion of test interpretation with radiology: I have reviewed the radiologist's reading. Critical Care Time Critical Care Time Critical Care Time: Yes Total Critical Care Time: 35 Attestation: I Mattie Dhaliwal PA-C have personally performed 35 minutes of critical care time not including lines and procedures; renal colic, need for IV analgesia, and need for hospital admission and urology consult Discharge Plan Discharge Clinical Impression: Calculus of proximal left ureter, Hydronephrosis, left, Hydroureter on left, Acute kidney injury Patient Disposition: Admitted As Inpatient Print Language: Icelandic
[2025-09-18 02:35] LABS: Appearance Urine Clear; Glucose Urine UA Negative (Negative); PH 5.5 (5.0-9.0); Specific Gravity - Urine >= 1.030 (1.005-1.025); UMIC TRIGGER UACC YES
--- NOTE | 2025-09-18 04:12 | PM.IMHP ---
History of Present Illness Date of Service: 09/18/25 Attending physician on admission: Markel Ziegler Chief Complaint: Left flank pain Noah Brown is a 64 years old man with past medical history significant for nephrolithiasis presents to the ED complaining of severe 9/10 left flank pain. The pain began on Monday of the previous week. The pain is constant and radiating to the pelvic region. He denied pain with urination or bloody urine. He reported suggestive fever and chills. He also reported nausea but denied vomiting. Denied headache, palpitations, chest pain, shortness of breath or diarrhea. He mentioned that he has been taking ibuprofen every 4 hours (he was not sure about the dose - per dispense hx 400 mg). He has been also taking Tylenol to control the pain without improvement. He has not ever have any urological procedure in the past. Denied tobacco smoking, alcohol abuse or illicit drug use. In the ED, he was found to have stable vital signs. He does have bradycardia in the 40s. CBC is unremarkable, however, there is some degree of eosinophilia 0.6. There are no significant electrolyte imbalances. BUN is 22 and creatinine 1.77 (it wass 1.39 in 2022). UA showed elevated specific gravity and proteinuria 1+. Abdominal pelvis CT scan without contrast showed [id number] left hydronephrosis and left hydroureter secondary to a by 5 mm calculus at the left ureteral orifice (prior study there was a 4 x 3 mm calculus in the left urethrovesical junction), it also showed colonic diverticulosis without diverticulitis. ED tx: NS 1 L bolus, Zofran 8 mg IV total morphine 4 mg IV, Dilaudid 1 mg IV, Flomax 0.8 mg p.o. Review of Systems Review of Systems: All 12 systems were reviewed and normal except as noted in HPI. [facility] Medical History Diverticulitis Kidney stones Kidney stones Social History Household Members: Family Housing: House Do you presently have visiting nurse or other home services: No Alcohol intake: never Patient Tobacco Use Status: Never used Tobacco Smoked in Last 30 Days: No Use of substances other than those prescribed or required for medical reasons: No Advance Directives: No Advance Directives Date on File: 05/06/21 service: Yes (2YRS [employer] IN [place]) Current occupational status: employed Meds Allergies Allergy/AdvReac Type Severity Reaction Status Date / Time No Known Allergies Allergy Verified 09/18/25 01:05 Active Medications: Current Medications Acetaminophen (Acetaminophen 325 Mg Tablet) 975 mg PO Q6H PRN PRN Reason: Pain, Mild 1-3,fever,headache Calcium Carbonate (Calcium Carbonate 750 Mg Tab.Chew) 750 mg PO Q4H PRN PRN Reason: Heartburn Magnesium Hydroxide (Milk Of Magnesia 30 Ml Oral.Susp) 30 ml PO DAILY PRN PRN Reason: Constipation Melatonin (Melatonin 3 Mg Tablet) 6 mg PO BEDTIME PRN PRN Reason: Insomnia Sodium Chloride (0.9 % Sodium Chloride Flush 3 Ml Syringe) 3 ml IVFLUSH QSHIFT RENÉE Physical Exam Vital Signs and Narrative: Vital Signs: Last Vital Signs Temp 97.8 F 09/18/25 02:24 Pulse 52 09/18/25 03:07 Resp 17 09/18/25 03:07 BP 127/80 09/18/25 02:24 Pulse Ox 98 09/18/25 02:24 O2 Del Method Room Air 09/18/25 02:24 BMI result Body Mass Index 34.1 General: Alert, oriented. Looks uncomfortable due to pain. Well nourished and cooperative. Afebrile. HEENT: Head normocephalic, atraumatic. PER, EOMI. Sclerae anicteric, conjunctiva clear. Oropharynx without erythema or exudate. Mucous membranes moist. Neck: Supple. Heart: Bradycardia, regular rhythm. No murmurs, rubs or gallops. Lungs: Clear to auscultation bilaterally. No wheezes, rales, or rhonchi. Normal respiratory effort. Abdomen: Soft, left flank tenderness (-) CVA tenderness, normoactive bowel sounds. No hepatosplenomegaly, masses or masses. Extremities: No calf tenderness bilaterally, no swelling Musculoskeletal: Full range of motion. No joint swelling, deformity, or tenderness. Normal muscle tone and strength. Skin: Warm/Dry. No pallor. No jaundice. Neurologic: Alert & oriented x4. Moving all extremities spontaneously. Normal speech. Psychological: Normal mood and affect. Thought process coherent. Results Labs 09/18/25 01:12 09/18/25 01:12 Labs: Laboratory Results - last 24 hr 09/18/25 09/18/25 01:12 02:23 MCV 94.6 MCH 31.4 MCHC 33.2 RDW 12.7 Plt Count 198 MPV 12.3 Immature Gran % (Auto) 0.3 Neut % (Auto) 62.1 Lymph % (Auto) 22.2 [place] % (Auto) 9.3 Eos % (Auto) 5.6 H Baso % (Auto) 0.5 Lymph # (Auto) 2.3 [place] # (Auto) 1.0 Eos # (Auto) 0.6 H Baso # (Auto) 0.1 Abs Immat Gran (auto) 0.03 Absolute Neuts (auto) 6.4 Absolute Nucleated RBC 0.000 Nucleated RBC % (auto) 0.0 Anion Gap 15 Estim Creat Clear Calc 43.0 Estimated GFR 39 Random Glucose 133 H Calcium 10.1 Total Bilirubin 0.9 AST 29 ALT 17 Alkaline Phosphatase 78 Total Protein 7.6 Albumin 4.7 Urine Color Yellow Urine Appearance Clear Urine pH 5.5 Ur Specific [place] >= 1.030 H Urine Protein 30 (1+) H Urine Glucose (UA) Negative Urine Ketones Negative Urine Blood Negative Urine Nitrite Negative Ur Leukocyte Esterase Negative Urine RBC 0-2 Urine WBC 0-5 Ur Squamous Epith Cells 0-2 Urine Bacteria None Seen Hyaline Casts 0-2 Assessment and Plan (1) Acute kidney injury: Status: Acute (2) Calculus of proximal left ureter: Status: Acute Plan Noah Brown is a 64 y/o man with a PMHx significant for nephrolithiasis who presents with: Left obstructive renal calculus (8 x 5 mm)/mild to moderate left hydronephrosis and hydroureter. Pain control. IV hydration. Urology consult. Acute kidney injury, likely due to NSAIDs use + obstructive uropathy. CBC showing eosinophilia. Discontinue use of ibuprofen (taking this since Monday of the last week q4h). No lytes abnormalities or acidosis. Continue IV fluids. Check urine for sodium, creatinine, osmolality and eosinophils. Check serum phosphorus. Avoid nephrotoxic agents. Nephrology consult. Bradycardia, chronic. Asymptomatic.HR 40-50s since 2020. Workup as an outpatient. Code status: Full DVT prophylaxis: SCDs Patient will need hospitalization for at least 2 midnights for left obstructive renal calculus with mild to moderate left hydronephrosis and hydroureter treatment with supportive therapy and evaluation by urology service for possible urological procedure. This documentation was generated using dictation software; minor spreading or software verification engineer errors may be present. Quality Stroke Does the patient have a stroke diagnosis?: No VTE Prior VTE?: No VTE Risk Level:: Medical - moderate - high VTE Device Contraindication: N/A - Device Ordered VTE Drug Contraindication: Treatment Not Indicated
[2025-09-18 04:53] LABS: MANUAL DIFF FLAG NO
[2025-09-18 04:55] LABS: Hematocrit 44.1 % (42.0-52.0); Hemoglobin 14.6 g/dl (14.0-18.0); Imm Gran Abs Auto 0.05 X10*3/uL (0.00-0.03); Imm Gran Pct Auto 0.5 % (0.0-0.4); Lymphocytes Absolute Auto 1.7 X10*3/uL (1.2-4.9); Mean Corpuscular HGB Conc 33.1 g/dl (31.0-36.0); Mean Corpuscular Hemoglobin 31.3 pg (27.0-33.0); Mean Corpuscular Volume 94.6 fL (80.0-98.0); NRBC Abs Auto 0.000 X10*3/uL (0.0-0.012); NRBC Pct Auto 0.0 /100WBC (0.0-0.2); Platelet Count 167 X10*3/uL (160-400); Red Blood Count 4.66 X10*6/uL (4.60-5.80); White Blood Count 10.0 X10*3/uL (4.8-10.8)
[2025-09-18 05:07] LABS: Thyroid Stimulating Hormone 1.51 uIU/mL (0.32-4.0)
[2025-09-18 05:18] LABS: Anion Gap 12 (12-20); Blood Urea Nitrogen 18 mg/dL (9-16); Calcium 8.5 mg/dL (8.4-10.2); Carbon Dioxide 25 mmol/L (22-29); Chloride 107 mmol/L (96-108); Creatinine Clr Calc Pharmacy 47.8; Estimated Glomerular Filt Rate 44; Magnesium 2.0 mg/dL (1.6-2.6); Potassium 4.3 mmol/L (3.3-5.1); Sodium 140 mmol/L (135-145)
--- NOTE | 2025-09-18 07:20 | PC.NURSE ---
This sql report writer assumed care of this Pt at 0700. Pt A&Ox3, denies any pain at this time. Pt siting at edge of bed eating breakfast.
--- NOTE | 2025-09-18 07:50 | HO.NURTONUR ---
Pt came in from home, complaining of severe 9/10 left flank pain that started on Monday. Pt also reports chills, fevers and nausea. Abdominal pelvis CT scan without contrast showed [id number]-[id number] left hydronephrosis and left hydroureter secondary to a by 5 mm calculus at the left ureteral orifice, also showed colonic diverticulosis without diverticulitis. Pt was given NS 1 L bolus, Zofran 8 mg IV total morphine 4 mg IV, Dilaudid 1 mg IV, Flomax 0.8 mg p.o. Pt has been virgen in the 40s. Chronic and asymptomatic since 2020. 20G to L AC with NS @ 125 mL/hr. Pt A&Ox3, ambulates independently.
[2025-09-18 08:08] LABS: EOS QC POS YES; EOS Stain Quality OK YES
[2025-09-18 08:09] LABS: EOS Counted 3 CELLS; WBC, Counted 80 CELLS
--- NOTE | 2025-09-18 08:12 | PHA.MEDREC ---
Addendum entered by Michaelle Coats RPh 09/18/25 08:14: reviewed by [facility] Original Note: Pharmacy Consult ? Medication Reconciliation Pharmacy has completed the medication reconciliation. Spoke with pt and he confirmed he is only taking Acetaminophen 500mg tabs 2 as needed for pain at this time and nothing else at this time for medications.
[2025-09-18] MEDS: oxyCODONE HCl Immed Release 5 MG TABLET PO (08:42)
--- NOTE | 2025-09-18 10:11 | PM.UROCN ---
History of Present Illness Consult details Consult date: 09/18/25 Narrative: 64 years old man with past medical history significant for nephrolithiasis presents to the ED complaining of severe 9/10 left flank pain. The pain began on Monday of the previous week. The pain is constant and radiating to the pelvic region. He denied pain with urination or bloody urine. He reported suggestive fever and chills. He also reported nausea but denied vomiting. CTAP: IMPRESSION:1. Pckz-qb-[id number] left hydronephrosis and left hydroureter secondary to a 8 x 5 mm calculus at the left ureteral orifice. Review of Systems Review of Systems: Yes all other systems are reviewed and are negative Constitutional: Constitutional: Reports no additional constitutional complaints Eyes: Eyes: Reports no additional eye complaints ENT: Reports system reviewed and no additional complaints, except as documented Cardiovascular: Cardiovascular: Reports no additional cardiovascular complaints Respiratory: Respiratory: Reports no additional respiratory complaints Gastrointestinal: Gastrointestinal: Reports no additional gastrointestinal complaints Genitourinary: Genitourinary: Reports as per HPI Musculoskeletal: Musculoskeletal: Reports no additional musculoskeletal complaints Integumentary/Breasts: Skin/Breast: Reports system reviewed and no additional complaints, except as docu Neurologic: Reports system reviewed and no additional complaints, except as documented Psychiatric: Psychiatric: Reports no additional psychiatric complaints Endocrine: Endocrine: Reports no additional endocrine complaints Hematologic/Lymphatic: Hematologic/Lymphatic: Reports no additional hematologic/lymphatic complaints Allergic/Immunologic: Allergic/Immunologic: Reports no additional allergic/immunologic complaints [facility] Past Medical History Medical History Diverticulitis Kidney stones Kidney stones Social History Social History Household Members: Spouse and Children Housing: House Do you presently have visiting nurse or other home services: No Alcohol intake: never Patient Tobacco Use Status: Never used Tobacco Advance Directives Date on File: 05/06/21 service: No Current occupational status: employed Meds Allergies Allergy/AdvReac Type Severity Reaction Status Date / Time No Known Allergies Allergy Verified 09/18/25 01:05 Active Medications: Current Medications Acetaminophen (Acetaminophen 325 Mg Tablet) 975 mg PO Q6H PRN PRN Reason: Pain, Mild 1-3,fever,headache Calcium Carbonate (Calcium Carbonate 750 Mg Tab.Chew) 750 mg PO Q4H PRN PRN Reason: Heartburn Hydromorphone HCl (Hydromorphone Hcl 1 Mg/Ml Syringe) 1 mg IVPUSH Q3H PRN; Protocol PRN Reason: Pain, Severe (Pain Scale 7-10) Sodium Chloride (Ns) 1,000 mls @ 125 mls/hr IVCONT .Q8H [facility] Stop: 09/18/25 12:29 Last Admin: 09/18/25 05:00 Dose: 125 mls/hr Influenza Virus Vaccine (Flu Vacc [id number](6mo Up)/Pf 0.5 Ml Syringe) 0.5 ml IM .ONCE ONE Stop: 09/19/25 09:01 Magnesium Hydroxide (Milk Of Magnesia 30 Ml Oral.Susp) 30 ml PO DAILY PRN PRN Reason: Constipation Melatonin (Melatonin 3 Mg Tablet) 6 mg PO BEDTIME PRN PRN Reason: Insomnia Oxycodone HCl (Oxycodone Hcl Immed Release 5 Mg Tablet) 5 mg PO Q4H PRN PRN Reason: Pain, Moderate(Pain Scale 4-6) Last Admin: 09/18/25 08:42 Dose: 5 mg Prochlorperazine Edisylate (Prochlorperazine Edisylate 10 Mg/2 Ml Vial) 5 mg IVPUSH Q6H PRN PRN Reason: Nausea and Vomiting Sodium Chloride (0.9 % Sodium Chloride Flush 3 Ml Syringe) 3 ml IVFLUSH [facility] Last Admin: 09/18/25 08:39 Dose: Not Given Home Medications ?Medication ?Instructions ?Recorded ?Confirmed ?Last Taken ?Type acetaminophen 500 mg tablet 1,000 mg PO Q6H PRN Pain 09/18/25 09/18/25 09/17/25 History Physical Exam Vital Signs: Vital Signs: Last Vital Signs Temp 96.9 F 09/18/25 08:43 Pulse 44 L 09/18/25 08:43 Resp 14 09/18/25 08:43 BP 129/69 09/18/25 08:43 Pulse Ox 95 09/18/25 08:43 O2 Del Method Room Air 09/18/25 08:43 BMI result Body Mass Index 32.9 Const: General: healthy appearing, no acute distress and well developed Orientation/consciousness: patient oriented x3 HEENT: Head: Yes normocephalic and Yes atraumatic Eyes: Conjunctivae: conjunctivae normal Neck: Neck: Yes normal visual inspection Chest: Chest palpation & inspection: normal inspection of the chest Resp: Effort & Inspection: normal respiratory effort GI: Inspection: Yes normal to inspection Palpation (GI): Soft to palpation : General: Yes CVA tenderness (left) Back/Spine/Pelvis: Back: CVA tenderness (left) Neuro: General: patient oriented x3 Psych: Appearance: grossly normal Affect: normal affect Results Labs 09/18/25 04:42 09/19/25 08:48 Labs: Abnormal lab results 09/18/25 09/18/25 09/18/25 Range/Units 01:12 02:23 04:42 Immature Gran % (Auto) 0.5 H (0.0-0.4) % Lymph % (Auto) 17.2 L (20-40) % Eos % (Auto) 5.6 H 4.5 H (0-4) % Eos # (Auto) 0.6 H 0.5 H (0.0-0.4) X10*3/uL Abs Immat Gran (auto) 0.05 H (0.00-0.03) X10*3/uL BUN 22 H 18 H (9-16) mg/dL Creatinine 1.77 H 1.59 H (0.5-1.4) mg/dL Random Glucose 133 H (60-115) mg/dL Ur Specific [place] >= 1.030 H (1.005-1.025) Urine Protein 30 (1+) H (Neg-Trace) mg/dL Short CBC 09/18/25 09/18/25 Range/Units 01:12 04:42 WBC 10.3 10.0 (4.8-10.8) X10*3/uL Hgb 15.8 14.6 (14.0-18.0) g/dl Hct 47.6 44.1 (42.0-52.0) % Plt Count 198 167 (160-400) X10*3/uL BMP 09/18/25 09/18/25 01:12 04:42 Sodium 143 140 Potassium 5.0 4.3 Chloride 106 107 Carbon Dioxide 27 25 BUN 22 H 18 H Creatinine 1.77 H 1.59 H Calcium 10.1 8.5 D Liver Function 09/18/25 Range/Units 01:12 Total Bilirubin 0.9 (0.0-1.0) mg/dL AST 29 (5-37) U/L ALT 17 (0-40) U/L Alkaline Phosphatase 78 (39-117) U/L Albumin 4.7 (3.5-5.0) g/dL Urine 09/18/25 Range/Units 02:23 Urine Color Yellow Urine Appearance Clear Urine pH 5.5 (5.0-9.0) Ur Specific [place] >= 1.030 H (1.005-1.025) Urine Protein 30 (1+) H (Neg-Trace) mg/dL Urine Glucose (UA) Negative (Negative) mg/dL Imaging Additional studies: Date of Service: 09/18/25 Comparison: CT/REG/IA/SR - CT ABDOMEN PELVIS WITHOUT IV CONTRAST - 05/26/23 13:53 EDT Findings: CT abdomen: No infiltrates within the lung bases. Scattered degenerative changes are relatively mild within the thoracolumbar spine. No acute fracture bony destructive changes identified. Jgzv-en-bebrugya left hydronephrosis with left hydroureter. Multiple small stones are seen within the left kidney measuring up to 3 mm in size. There is left perinephric stranding and left periureteral edema. There is a 8 x 5 mm calculus at the level of the left ureteral orifice. On the prior examination, there was a 4 x 3 mm calculus at the left ureterovesicular junction. Focal periureteral edema as well as edema of the left ureteral orifice. Several small calculi seen within the right kidney measuring 2 mm in size or less. 1 cm cyst within the lower pole of the right kidney. No hydronephrosis or right ureteral calculi identified. Unenhanced liver, spleen, pancreas, gallbladder, and adrenal glands are unremarkable. Small bowel loops are of normal caliber. CT pelvis: Appendix is normal. Numerous diverticuli seen throughout the colon. No findings of diverticulitis. Fat containing left inguinal hernia as on prior study with approximately 15 mm fascial defect. No free fluid or free air. IMPRESSION: 1. Uyoz-ff-uiomsjnt left hydronephrosis and left hydroureter secondary to a 8 x 5 mm calculus at the left ureteral orifice. Please note that on the patient's prior study, there was a 4 x 3 mm calculus at the left ureterovesicular junction. 2. Additional nonobstructing bilateral renal calculi. 3. Colonic diverticulosis without diverticulitis. Assessment and Plan (1) Kidney stones: Status: Acute (2) Hydronephrosis, left: Status: Acute (3) Hydroureter on left: Status: Acute (4) Acute kidney injury: Status: Acute (5) Left ureteral stone: Status: Acute Plan IVF hydration, flomax, strain urine, if does not pass in 24 hrs. for OR tomorrow left ureteroscopy, laser, stent Procedures Date of Service Date of Service: 09/19/25
--- NOTE | 2025-09-18 13:32 | MHC.CM.PN ---
Addendum entered by Breanna Alexander RN 09/18/25 13:34: PER FINANCIAL SERVICES, NO ACTIVE INSURANCE. WORKING ON [employer]. Original Note: PATIENT LIVES AT HOME W/ . INDEPENDENT W/ ALL CARE. DENIES USE OF DME OR SERVICES. REPORTS DR VACA WAS HIS PCP, BUT HE HASN'T BEEN SEEN IN A LONG TIME. HE IS NOT SURE IF HE IS STILL ACTIVE, BUT WILL CALL TO SCHEDULE APPT. HCP IS , KO. COPY REQUESTED. DP: HOME SELF CARE. CAR IN LOT FOR SELF TRANSPORT. CM WILL CONTINUE TO FOLLOW.
--- NOTE | 2025-09-18 13:43 | PM.CNNEP ---
History of Present Illness Reason for Consult Consult date: 09/18/25 Reason for consult: GERMANIA Chief Complaint Chief complaint: Acute kidney injury, obstructive kidney stone History of Present Illness Narrative: Noah Brown is a 64 years old man with past medical history significant for nephrolithiasis presents to the ED complaining of severe 9/10 left flank pain. The pain began on Monday of the previous week. The pain is constant and radiating to the pelvic region. He denied pain with urination or bloody urine. He reported suggestive fever and chills. He also reported nausea but denied vomiting Review of Systems Constitutional: Denies fever(s) and Denies weight loss Cardiovascular: Denies chest pain Respiratory: Denies cough and Denies hemoptysis Gastrointestinal: Denies abdominal pain, Denies diarrhea and Denies nausea Denies focal weakness PMFSH Past Medical History Medical History Diverticulitis Kidney stones Kidney stones Social History Social History Household Members: Spouse and Children Housing: House Do you presently have visiting nurse or other home services: No Alcohol intake: never Patient Tobacco Use Status: Never used Tobacco Advance Directives Date on File: 05/06/21 service: No Current occupational status: employed Meds Allergies Allergy/AdvReac Type Severity Reaction Status Date / Time No Known Allergies Allergy Verified 09/18/25 01:05 Active Medications: Current Medications Acetaminophen (Acetaminophen 325 Mg Tablet) 975 mg PO Q6H PRN PRN Reason: Pain, Mild 1-3,fever,headache Calcium Carbonate (Calcium Carbonate 750 Mg Tab.Chew) 750 mg PO Q4H PRN PRN Reason: Heartburn Hydromorphone HCl (Hydromorphone Hcl 1 Mg/Ml Syringe) 1 mg IVPUSH Q3H PRN; Protocol PRN Reason: Pain, Severe (Pain Scale 7-10) Last Admin: 09/18/25 10:36 Dose: 1 mg Influenza Virus Vaccine (Flu Vacc [id number](6mo Up)/Pf 0.5 Ml Syringe) 0.5 ml IM .ONCE ONE Stop: 09/19/25 09:01 Magnesium Hydroxide (Milk Of Magnesia 30 Ml Oral.Susp) 30 ml PO DAILY PRN PRN Reason: Constipation Melatonin (Melatonin 3 Mg Tablet) 6 mg PO BEDTIME PRN PRN Reason: Insomnia Oxycodone HCl (Oxycodone Hcl Immed Release 5 Mg Tablet) 5 mg PO Q4H PRN PRN Reason: Pain, Moderate(Pain Scale 4-6) Last Admin: 09/18/25 08:42 Dose: 5 mg Prochlorperazine Edisylate (Prochlorperazine Edisylate 10 Mg/2 Ml Vial) 5 mg IVPUSH Q6H PRN PRN Reason: Nausea and Vomiting Last Admin: 09/18/25 11:43 Dose: 5 mg Sodium Chloride (0.9 % Sodium Chloride Flush 3 Ml Syringe) 3 ml IVFLUSH [facility]SHIFT [facility]E Last Admin: 09/18/25 08:39 Dose: Not Given Home Medications ?Medication ?Instructions ?Recorded ?Confirmed ?Last Taken ?Type acetaminophen 500 mg tablet 1,000 mg PO Q6H PRN Pain 09/18/25 09/18/25 09/17/25 History Physical Exam Vital Signs: Last Vital Signs Temp 96.9 F 09/18/25 08:43 Pulse 44 L 09/18/25 08:43 Resp 14 09/18/25 08:43 BP 129/69 09/18/25 08:43 Pulse Ox 95 09/18/25 08:43 O2 Del Method Room Air 09/18/25 08:43 BMI result Body Mass Index 32.9 Comfortable Neck supple no JVD. Lungs entry equal no rales. Heart S1-S2 heard no gallop or rub. Abdomen soft nontender. Neuro alert awake oriented. No asterixis. Extremities no edema. Results Lab Results 09/18/25 04:42 09/18/25 04:42 Lab results: Chemistry 09/18/25 09/18/25 01:12 04:42 Sodium 143 140 Potassium 5.0 4.3 Carbon Dioxide 27 25 BUN 22 H 18 H Creatinine 1.77 H 1.59 H Calcium 10.1 8.5 D Phosphorus 2.9 Hematology 09/18/25 09/18/25 01:12 04:42 WBC 10.3 10.0 Hgb 15.8 14.6 Plt Count 198 167 Urinalysis 09/18/25 02:23 Urine Color Yellow Urine Appearance Clear Urine pH 5.5 Ur Specific [place] >= 1.030 H Urine Protein 30 (1+) H Urine Glucose (UA) Negative Urine Ketones Negative Urine Blood Negative Urine Nitrite Negative Ur Leukocyte Esterase Negative Urine RBC 0-2 Urine WBC 0-5 Ur Squamous Epith Cells 0-2 Hyaline Casts 0-2 Urine Studies 09/18/25 02:23 Urine Osmolality 1020 Urine Creatinine 286.07 Imaging 1. Jdkm-la-xhwipzke left hydronephrosis and left hydroureter secondary to a 8 x 5 mm calculus at the left ureteral orifice. Please note that on the patient's prior study, there was a 4 x 3 mm calculus at the left ureterovesicular junction. 2. Additional nonobstructing bilateral renal calculi. 3. Colonic diverticulosis without diverticulitis. Assessment and Plan (1) Kidney stones: Status: Acute (2) Acute kidney injury: Status: Acute Plan Middle-aged man with the acute kidney injury in the setting of renal stones and obstructive uropathy. There could be a component of superimposed hypoperfusion. There has been a marginal improvement in renal function with hydration. Recommendations IV hydration Avoid hypotension Concur with the urological plan. If the stone does not pass he may require intervention to relieve obstruction. Shall follow along with the team. Procedures Date of Service Date of Service: 09/18/25
[2025-09-18] MEDS: 0.9 % Sodium Chloride Flush 3 ML SYRINGE IVFLUSH (14:08)
--- NOTE | 2025-09-18 14:11 | PM.EVENT ---
Event Note Date of Service: 09/18/25 Event Note: Patient was admitted with GERMANIA and renal stone. Pain is somewhat similar cr improving from 1.77-1.59 Assessment and plan as per H &p note Pain control, hydration,tamulosin Time Spent With Patient Time: Total time managing care of this patient today ____ minutes.
[2025-09-19] VITALS (12 sets, daily range): BP systolic 108–160; BP diastolic 59–89; PULSE 54–80; RESP 14–18; TEMP 36.2–36.9; O2SAT 94–98
--- NOTE | 2025-09-19 07:43 | PM.DS ---
DS: Providers Provider Date of Service: 09/19/25 Date of admission: 09/18/25 03:33 Date of discharge: 09/19/25 Primary care physician: Doug Prieto MD Consults: 09/18/25 04:10 Consult to Nephrology Routine Consulting Provider: [facility] Reason for consultation: Obstructive renal stone, GERMANIA, recent use of NSAIDs Has provider been notified: No Consult to Urology Routine Consulting Provider: [facility] Reason for consultation: Obstructive renal calculi, GERMANIA Has provider been notified: No Attending physician on discharge: Sourav Erwin Discharging clinician: Sourav Erwin DS: Diagnosis Discharge Diagnosis (1) Kidney stones: Status: Acute (2) Acute kidney injury: Status: Acute DS: Summary Hospital Course Hospital Course: HPI:64 years old man with past medical history significant for nephrolithiasis presents to the ED complaining of severe 9/10 left flank pain. The pain began on Monday of the previous week. The pain is constant and radiating to the pelvic region. He denied pain with urination or bloody urine. He reported suggestive fever and chills. He also reported nausea but denied vomiting. Denied headache, palpitations, chest pain, shortness of breath or diarrhea. He mentioned that he has been taking ibuprofen every 4 hours (he was not sure about the dose - per dispense hx 400 mg). He has been also taking Tylenol to control the pain without improvement. He has not ever have any urological procedure in the past. Denied tobacco smoking, alcohol abuse or illicit drug use. In the ED, he was found to have stable vital signs. He does have bradycardia in the 40s. CBC is unremarkable, however, there is some degree of eosinophilia 0.6. There are no significant electrolyte imbalances. BUN is 22 and creatinine 1.77 (it wass 1.39 in 2022). UA showed elevated specific gravity and proteinuria 1+. Abdominal pelvis CT scan without contrast showed [id number] left hydronephrosis and left hydroureter secondary to a by 5 mm calculus at the left ureteral orifice (prior study there was a 4 x 3 mm calculus in the left urethrovesical junction), it also showed colonic diverticulosis without diverticulitis. ED tx: NS 1 L bolus, Zofran 8 mg IV total morphine 4 mg IV, Dilaudid 1 mg IV, Flomax 0.8 mg p.o. Hospital course: Patient was admitted to the hospital because of flank pain: Presented with germania&obstructive uropathy secondary to ureteral stone- improved with pain meds,hydration,flomax as well as seen by urology -s/p ?leftstent insertion. With the above supportive care patient seems to be improved significantly-pain resolved, GERMANIA also resolved, last creatinine is 1.23. Patient was strongly advised for hydration and p.o. intake. Elevated blood pressure reading possible secondary to pain -lifestyle modifications, monitor blood pressure closely outpatient-if consistently above 140/90 mmHg might need blood pressure medication. Patient was strongly advised to follow-up with PCP outpatient/urology. plan: encouraged for po hydration,tylenol/flomax. follow up with urology. Above management discussed with the patient detail length with his present they both understand and in agreement with the above plan, time spent 45 minute. Time Attestation Total time managing care of this patient today: 45 mintues. Discharge Coordination Time (in mins): 45min Quality: Safe Use of Opioids Does Pt have an Active Cancer Diagnosis on the Problem List?: No Quality: Stroke Does the patient have a stroke diagnosis?: No Physical Exam Exam: Exam: Appearance: Alert.? Oriented X3. cvs: rrr, [id number] . res: clear to auscultation ,no rhonchii or wheezing abd: no rebound or guarding ,nt, bs present. ext pulses present , no cyanosis .. neuro: axo3 , nonfocal. Vital Signs: Vital Signs: Last Vital Signs Temp 97.6 F 09/19/25 04:00 Pulse 64 09/19/25 04:00 Resp 17 09/19/25 04:00 BP 113/71 09/19/25 04:00 Pulse Ox 96 09/19/25 04:00 O2 Del Method Room Air 09/19/25 04:00 BMI result Body Mass Index 32.9 DS: Data Data Completed and Pending Labs on day of discharge: Laboratory Results - last 24 hr 09/18/25 02:23 Urine Eosinophils % 3.8 Imaging Chest x-ray: My impression: ct abd:1. [id number] left hydronephrosis and left hydroureter secondary to a 8 x 5 mm calculus at the left ureteral orifice. Please note that on the patient's prior study, there was a 4 x 3 mm calculus at the left ureterovesicular junction. 2. Additional nonobstructing bilateral renal calculi.3. Colonic diverticulosis without diverticulitis. Discharge Plan Discharge Anticipated Discharge Date/Time: 09/19/25 07:38 Patient Disposition: Home, Self-Care Discharge Diagnosis: germania , obstructive uropathy secondary to ureteral stone. Referrals: Divya Cheung MD [Physician, Urology] - 1 Week Po,Doug Maharaj MD [Primary Care Provider, Internal Medicine] - 1 Week Discharge Medications: New tamsulosin 0.4 mg Capsule 0.4 mg PO BEDTIME Qty: 90 0RF Continued acetaminophen 500 mg Tablet 1,000 mg PO Q6H PRN (Reason: Pain) Discharge Orders: Discharge Order (Routine); Ordered 09/20/25 Ordered By: Sourav Erwin Diet: Advance to usual diet Activity on Discharge: As tolerated Stand Alone Forms: Patient Portal Discharge page Print Language: Korean Care Plan Goals: as below. Health Concerns: encouraged for po hydration,tylenol/flomax. follow up with urology Plan of Treatment: as above. Assessment: as above. Discharge Date/Time: 09/20/25 12:56
--- NOTE | 2025-09-19 08:38 | P.PNUR_ITS ---
Subjective Subjective Date of Service: 09/19/25 Patient reports: feels better Interval history: Clinically improving, denies pain since last night Physical Exam 2 Vital Signs: Vital Signs: Last Vital Signs Temp 98.3 F 09/19/25 08:00 Pulse 71 09/19/25 08:00 Resp 18 09/19/25 08:00 BP 132/87 09/19/25 08:00 Pulse Ox 97 09/19/25 08:00 O2 Del Method Room Air 09/19/25 08:00 BMI result Body Mass Index 32.9 Urology Results Labs 09/18/25 04:42 09/18/25 04:42 Progress Note: A&P Assessment and plan (1) Kidney stones: Status: Acute (2) Hydronephrosis, left: Status: Acute (3) Acute kidney injury: Status: Acute (4) Left ureteral stone: Status: Acute Plan US renal, reassess. Cont NPO Time Spent With Patient Time: Total time managing care of this patient today ____ minutes. Progress Note: Quality Stroke Does the patient have a stroke diagnosis?: No
[2025-09-19 09:08] LABS: Anion Gap 11 (12-20); Blood Urea Nitrogen 16 mg/dL (9-16); Calcium 9.0 mg/dL (8.4-10.2); Carbon Dioxide 26 mmol/L (22-29); Chloride 105 mmol/L (96-108); Creatinine Clr Calc Pharmacy 42.2; Estimated Glomerular Filt Rate 39; Potassium 3.7 mmol/L (3.3-5.1); Sodium 138 mmol/L (135-145)
[2025-09-19] MEDS: Milk of Magnesia 30 ML ORAL.SUSP PO (10:49)
--- NOTE | 2025-09-19 12:39 | MHC.CM.PN ---
Patient not medically cleared for dc at this time. CM will continue to follow.
--- NOTE | 2025-09-19 16:25 | HO.ANESPROP2 ---
Documented by User: Mayra Batista NP 09/19/25 12:28 HPI - Anesthesia Eval Consult details Narrative: 64 yr old male for left Cystoscopy, Ureteroroscopy, Retro, Laser,with stent placement Bradycardia in ED, rate 47 on EKG PMFSH Active Problems Active Problems: All Active Problems Left ureteral stone (Acute) Acute kidney injury (Acute) Hydroureter on left (Acute) Hydronephrosis, left (Acute) Calculus of proximal left ureter (Acute) Diverticulitis (Acute) Kidney stones (Acute) Past Medical History Medical History Diverticulitis Kidney stones Kidney stones Social History Social History Household Members: Spouse and Children Housing: House Do you presently have visiting nurse or other home services: No Alcohol intake: never Patient Tobacco Use Status: Never used Tobacco Advance Directives Date on File: 05/06/21 service: No Current occupational status: employed Meds Allergies Allergy/AdvReac Type Severity Reaction Status Date / Time No Known Allergies Allergy Verified 09/18/25 01:05 Active Medications: Current Medications Acetaminophen (Acetaminophen 325 Mg Tablet) 975 mg PO Q6H PRN PRN Reason: Pain, Mild 1-3,fever,headache Calcium Carbonate (Calcium Carbonate 750 Mg Tab.Chew) 750 mg PO Q4H PRN PRN Reason: Heartburn Last Admin: 09/19/25 05:37 Dose: 750 mg Hydromorphone HCl (Hydromorphone Hcl 1 Mg/Ml Syringe) 1 mg IVPUSH Q3H PRN; Protocol PRN Reason: Pain, Severe (Pain Scale 7-10) Last Admin: 09/18/25 14:07 Dose: 1 mg Sodium Chloride (Ns) 1,000 mls @ 125 mls/hr IVCONT .Q8H RENÉE Last Infusion: 09/19/25 09:40 Dose: 125 mls/hr Influenza Virus Vaccine (Flu Vacc [id number](6mo Up)/Pf 0.5 Ml Syringe) 0.5 ml IM .ONCE ONE Stop: 09/20/25 09:01 Magnesium Hydroxide (Milk Of Magnesia 30 Ml Oral.Susp) 30 ml PO DAILY PRN PRN Reason: Constipation Last Admin: 09/19/25 10:49 Dose: 30 ml Melatonin (Melatonin 3 Mg Tablet) 6 mg PO BEDTIME PRN PRN Reason: Insomnia Oxycodone HCl (Oxycodone Hcl Immed Release 5 Mg Tablet) 5 mg PO Q4H PRN PRN Reason: Pain, Moderate(Pain Scale 4-6) Last Admin: 09/18/25 08:42 Dose: 5 mg Prochlorperazine Edisylate (Prochlorperazine Edisylate 10 Mg/2 Ml Vial) 5 mg IVPUSH Q6H PRN PRN Reason: Nausea and Vomiting Last Admin: 09/18/25 11:43 Dose: 5 mg Sodium Chloride (0.9 % Sodium Chloride Flush 3 Ml Syringe) [facility] Last Admin: 09/19/25 09:41 Dose: Not Given Tamsulosin HCl (Tamsulosin Hcl 0.4 Mg Capsule) 0.4 mg PO BEDTIME RENÉE Last Admin: 09/18/25 21:16 Dose: 0.4 mg Home Medications ?Medication ?Instructions ?Recorded ?Confirmed ?Last Taken ?Type acetaminophen 500 mg tablet 1,000 mg PO Q6H PRN Pain 09/18/25 09/18/25 09/17/25 History Exam Height,Weight and Vital Signs: Height 5 ft 5 in Weight 89.7 kg Last Vital Signs Temp 98.3 F 09/19/25 08:00 Pulse 71 09/19/25 08:00 Resp 18 09/19/25 08:00 BP 132/87 09/19/25 08:00 Pulse Ox 97 09/19/25 08:00 O2 Del Method Room Air 09/19/25 08:00 Pertinent Lab Results Pertinent Lab Results: Laboratory Tests 09/18/25 09/18/25 09/18/25 01:12 02:23 04:42 WBC 10.3 10.0 RBC 5.03 4.66 Hgb 15.8 14.6 Hct 47.6 44.1 MCV 94.6 94.6 MCH 31.4 31.3 MCHC 33.2 33.1 RDW 12.7 12.5 Plt Count 198 167 MPV 12.3 12.2 Immature Gran % (Auto) 0.3 0.5 H Neut % (Auto) 62.1 68.9 Lymph % (Auto) 22.2 17.2 L Sebastian % (Auto) 9.3 8.5 Eos % (Auto) 5.6 H 4.5 H Baso % (Auto) 0.5 0.4 Lymph # (Auto) 2.3 1.7 Sebastian # (Auto) 1.0 0.9 Eos # (Auto) 0.6 H 0.5 H Baso # (Auto) 0.1 0.0 Abs Immat Gran (auto) 0.03 0.05 H Absolute Neuts (auto) 6.4 6.9 Absolute Nucleated RBC 0.000 0.000 Nucleated RBC % (auto) 0.0 0.0 Hold Purple Top Sodium 143 140 Potassium 5.0 4.3 Chloride 106 107 Carbon Dioxide 27 25 Anion Gap 15 12 BUN 22 H 18 H Creatinine 1.77 H 1.59 H Estim Creat Clear Calc 43.0 47.8 Estimated GFR 39 44 Random Glucose 133 H 110 Calcium 10.1 8.5 D Phosphorus 2.9 Magnesium 2.0 Total Bilirubin 0.9 AST 29 ALT 17 Alkaline Phosphatase 78 Total Protein 7.6 Albumin 4.7 TSH 1.51 Urine Color Yellow Urine Appearance Clear Urine pH 5.5 Ur Specific Jenera >= 1.030 H Urine Protein 30 (1+) H Urine Glucose (UA) Negative Urine Ketones Negative Urine Blood Negative Urine Nitrite Negative Ur Leukocyte Esterase Negative Urine RBC 0-2 Urine WBC 0-5 Ur Squamous Epith Cells 0-2 Urine Bacteria None Seen Hyaline Casts 0-2 Urine Eosinophils % 3.8 Urine Osmolality 1020 Ur Random Sodium 183.0 Urine Creatinine 286.07 09/19/25 08:48 WBC RBC Hgb Hct MCV MCH MCHC RDW Plt Count MPV Immature Gran % (Auto) Neut % (Auto) Lymph % (Auto) Sebastian % (Auto) Eos % (Auto) Baso % (Auto) Lymph # (Auto) Sebastian # (Auto) Eos # (Auto) Baso # (Auto) Abs Immat Gran (auto) Absolute Neuts (auto) Absolute Nucleated RBC Nucleated RBC % (auto) Hold Purple Top SEE NOTE Sodium 138 Potassium 3.7 Chloride 105 Carbon Dioxide 26 Anion Gap 11 L BUN 16 Creatinine 1.77 H Estim Creat Clear Calc 42.2 Estimated GFR 39 Random Glucose 104 Calcium 9.0 Phosphorus Magnesium Total Bilirubin AST ALT Alkaline Phosphatase Total Protein Albumin TSH Urine Color Urine Appearance Urine pH Ur Specific Jenera Urine Protein Urine Glucose (UA) Urine Ketones Urine Blood Urine Nitrite Ur Leukocyte Esterase Urine RBC Urine WBC Ur Squamous Epith Cells Urine Bacteria Hyaline Casts Urine Eosinophils % Urine Osmolality Ur Random Sodium Urine Creatinine Narrative Narrative: EKG 09/19/25 Vent. Rate : 47 BPM Atrial Rate : 47 BPM P-R Int : 180 ms QRS Dur : 102 ms QT Int : 456 ms P-R-T Axes : 30 -48 13 degrees QTcB Int : 403 ms Sinus bradycardia Left anterior fascicular block Abnormal ECG No previous ECGs available Documented by User: Mariola Lucas DO 09/19/25 16:26 [facility] Past Medical History Medical History Diverticulitis Kidney stones Kidney stones Family History Family history of problems with anesthesia: No Surgical History History of Problems with Anesthesia: No (never had anesthesia before) Social History Social History Household Members: Spouse and Children Housing: House Do you presently have visiting nurse or other home services: No Alcohol intake: never Patient Tobacco Use Status: Never used Tobacco Advance Directives Date on File: 05/06/21 service: No Current occupational status: employed Meds Allergies Allergy/AdvReac Type Severity Reaction Status Date / Time No Known Allergies Allergy Verified 09/18/25 01:05 Home Medications ?Medication ?Instructions ?Recorded ?Confirmed ?Last Taken ?Type acetaminophen 500 mg tablet 1,000 mg PO Q6H PRN Pain 09/18/25 09/18/25 09/17/25 History Exam Exam Date and Time: 09/19/25 1625 Height,Weight and Vital Signs: Height 5 ft 5 in Weight 89.7 kg Last Vital Signs Temp 98.3 F 09/19/25 08:00 Pulse 71 09/19/25 08:00 Resp 18 09/19/25 08:00 BP 132/87 09/19/25 08:00 Pulse Ox 97 09/19/25 08:00 O2 Del Method Room Air 09/19/25 08:00 Vital Signs Temperature 98.1 F 09/18/25 01:02 Pulse Rate 64 09/18/25 01:02 Respiratory Rate 20 09/18/25 01:02 Blood Pressure 157/92 H 09/18/25 01:02 Pulse Oximetry 99 09/18/25 01:02 Oxygen Delivery Method Room Air 09/18/25 01:02 Temperature 98.5 F 09/19/25 15:00 Pulse Rate 80 09/19/25 15:00 Respiratory Rate 15 09/19/25 15:00 Blood Pressure 159/88 H 09/19/25 15:00 Pulse Oximetry 95 09/19/25 15:00 Oxygen Delivery Method Room Air 09/19/25 15:00 Airway Mallampati Class: III TM Dist: >3cm Neck ROM: Full Loose/Missing/Broken Teeth: No (patient denies any loose or broken teeth) Heart: S1S2 Lungs: CTAB Assessment and Plan Assessment Anesthesia Assessment: Anesthesia Plan Discussed and Chart Reviewed Final Anesthetic Review Family History of Problems with Anesthesia: No History of Problems with Anesthesia: No (never had anesthesia before) NPO: Yes ASA Class: II Final Preanesthetic Review: No Changes in Pt Med Stat, Meds/Allgs Chart Reviewed, Consent Obtained/Reviewed and Anes Risks/Benef Reviewed Patient Risk: Low Procedure Risk: Low Anesthetic Plan Anesthetic Plan: GA and Agree w/ Assess. and Plan Disposition: Standard PACU
--- NOTE | 2025-09-19 16:25 | P.PNIM_ITS ---
Subjective Subjective Date of Service: 09/20/25 Interval History: Left obstructive calculus Review of Systems Pain is improving, creatinine is somewhat worsening No nausea vomiting Physical Exam 2 Exam: Exam: Appearance: Alert.? Oriented X3.? cvs: rrr, [id number]. res: clear to auscultation ,no rhonchii or wheezing abd: no rebound or guarding ,nt, bs present. ext pulses present , no cyanosis . neuro: axo3 , nonfocal. Vital Signs: Vital Signs: Last Vital Signs Temp 98.5 F 09/19/25 15:00 Pulse 80 09/19/25 15:00 Resp 15 09/19/25 15:00 BP 159/88 H 09/19/25 15:00 Pulse Ox 95 09/19/25 15:00 O2 Del Method Room Air 09/19/25 15:00 BMI result Body Mass Index 32.9 Objective Data Active Medications Acetaminophen (Acetaminophen 325 Mg Tablet) 975 mg PO Q6H PRN PRN Reason: Pain, Mild 1-3,fever,headache Calcium Carbonate (Calcium Carbonate 750 Mg Tab.Chew) 750 mg PO Q4H PRN PRN Reason: Heartburn Last Admin: 09/19/25 05:37 Dose: 750 mg Documented By: LEFEBDANNIELLE Hydromorphone HCl (Hydromorphone Hcl 1 Mg/Ml Syringe) 1 mg IVPUSH Q3H PRN; Protocol PRN Reason: Pain, Severe (Pain Scale 7-10) Last Admin: 09/18/25 14:07 Dose: 1 mg Documented By: LYNNE Sodium Chloride (Ns) 1,000 mls @ 125 mls/hr IVCONT .Q8H RENÉE Last Admin: 09/19/25 14:36 Dose: 125 mls/hr Documented By: LUCERO Cefazolin Sodium/Dextrose (Ancef) 2 gm in 50 mls @ 100 mls/hr IV PREOP ONE Stop: 09/19/25 16:41 Influenza Virus Vaccine (Flu Vacc [id number](6mo Up)/Pf 0.5 Ml Syringe) 0.5 ml IM .ONCE ONE Stop: 09/20/25 09:01 Magnesium Hydroxide (Milk Of Magnesia 30 Ml Oral.Susp) 30 ml PO DAILY PRN PRN Reason: Constipation Last Admin: 09/19/25 10:49 Dose: 30 ml Documented By: LUCERO Melatonin (Melatonin 3 Mg Tablet) 6 mg PO BEDTIME PRN PRN Reason: Insomnia Oxycodone HCl (Oxycodone Hcl Immed Release 5 Mg Tablet) 5 mg PO Q4H PRN PRN Reason: Pain, Moderate(Pain Scale 4-6) Last Admin: 09/18/25 08:42 Dose: 5 mg Documented By: LYNNE Prochlorperazine Edisylate (Prochlorperazine Edisylate 10 Mg/2 Ml Vial) 5 mg IVPUSH Q6H PRN PRN Reason: Nausea and Vomiting Last Admin: 09/18/25 11:43 Dose: 5 mg Documented By: LYNNE Sodium Chloride (0.9 % Sodium Chloride Flush 3 Ml Syringe) [facility] Last Admin: 09/19/25 09:41 Dose: Not Given Documented By: LUCERO Non-Admin Reason: IV Running Tamsulosin HCl (Tamsulosin Hcl 0.4 Mg Capsule) 0.4 mg PO BEDTIME [facility] Last Admin: 09/18/25 21:16 Dose: 0.4 mg Documented By: LEFEBVA Labs 09/18/25 04:42 09/20/25 09:35 Labs: Laboratory Results - last 24 hr 09/19/25 08:48 Hold Purple Top SEE NOTE Anion Gap 11 L Estim Creat Clear Calc 42.2 Estimated GFR 39 Random Glucose 104 Calcium 9.0 Assessment and Plan (1) Hydronephrosis, left: Status: Acute (2) Acute kidney injury: Status: Acute Plan 64 y/o man with a PMHx significant for nephrolithiasis who presents with: Left obstructive renal calculus (8 x 5 mm)/mild to moderate left hydronephrosis and hydroureter. Pain control. IV hydration. Urology consult. Acute kidney injury, likely due to NSAIDs use + obstructive uropathy. CBC showing eosinophilia. Discontinue use of ibuprofen (taking this since Monday of the last week q4h). No lytes abnormalities or acidosis. Continue IV fluids. Check urine for sodium, creatinine, osmolality and eosinophils. Check serum phosphorus. Avoid nephrotoxic agents. Nephrology consult. Bradycardia, chronic. Asymptomatic.HR 40-50s since 2020. Workup as an outpatient. Code status: Full . DVT prophylaxis: SCDs . ongoing need for hospitlisation:erwin worsening,left obstructive renal calculus with mild to moderate left hydronephrosis and hydroureter treatment with supportive therapy and evaluation by urology service for possible urological procedure this evening. Quality Stroke Does the patient have a stroke diagnosis?: No VTE Prior VTE?: No VTE Risk Level:: Medical - moderate - high VTE Device Contraindication: N/A - Device Ordered VTE Drug Contraindication: Treatment Not Indicated
--- NOTE | 2025-09-19 17:14 | MHC.SHP ---
Pre-Procedural Eval Section A - 24 Hr Update-Section A only Date of Service: 09/19/25 The patient is an INPATIENT: Yes The patient has been examined within 24 hours of the surgical procedure. The History & Physical has been completed within 30 days and I have reviewed it.: Yes Section B - Complete if H&P > 30 days Chief Complaint: GERMANIA, obstructive kidney stone , left UVJ Allergies: Allergies Allergy/AdvReac Type Severity Reaction Status Date / Time No Known Allergies Allergy Verified 09/18/25 01:05 Plan Diagnosis/Plan: Unchanged I have reviewed the history and physical and performed a pertinent physical examination on my patient. No changes have occurred unless specified. Plan for Cystoscopy, left ureteroscopy, possible laser lithotripsy, possible ureteral stent. Risks discussed included but not limited to, possible need to repeat procedure if stone is not completely fragmented, Irritative voiding symptoms, bladder spasms, urgency, blood in urine. Time Spent With Patient Time: Total time managing care of this patient today ____ minutes.
--- NOTE | 2025-09-19 18:33 | P.OP_ITS ---
Operative Note Operative Note Date of Service: 09/19/25 Narrative: PreOperative Diagnosis:?? Left ureteral stone, GERMANIA, obstructive uropathy Post Operative Diagnosis:?? ?Left ureteral stone, GERMANIA, obstructive uropathy Procedure: Cystoscopy, left retrograde attempted ureteroscope, left stent insertion, size 6 fr by 22-32 cm Surgeon:?Dr Divya Cheung Anesthesia:? General Procedure: After informed consent was verified the patient was brought to the operating placed on the OR table in supine position.? General Anesthesia was administered per protocol.? The patient was placed in lithotomy position, prepped and draped in the usual sterile fashion.? Safety pause time-out and side of surgery confirmed.? Antibiotics confirmed. A 22 German cystoscope was inserted transurethrally, the bulbous urethra was within normal limits. The prostatic urethra with prominent median lobe, obstructing view of trigone. The bladder was visualized.? the left ureteric orifice was very edematous making cannulation complicated. Attempts with the 70 degree lens and ureteroscope were tried, after several attempts, the ureter was cannulated with ureteral catheter and guide wire. A hydrophilic guidewire was placed up to the level of the renal pelvis under fluoroscopy. A 6 fr by 22- 32 cm ureteral stent was passed over the guide wire under fluoroscopic guidance. The guide wire was removed. The bladder was emptied.? The rigid cystoscope was removed. ? Belladonna rectal supository was placed. The patient tolerated the procedure well and was brought to the recovery room in stable condition. Complications: None EBL: minimal (<5 mL) Drains: Ureteral stent as dictated above
[2025-09-19] MEDS: 0.9 % Sodium Chloride Flush 3 ML SYRINGE IVFLUSH (20:15)
[2025-09-19 22:40] LABS: Anion Gap 12 (12-20); Blood Urea Nitrogen 15 mg/dL (9-16); Calcium 8.8 mg/dL (8.4-10.2); Carbon Dioxide 25 mmol/L (22-29); Chloride 107 mmol/L (96-108); Creatinine Clr Calc Pharmacy 48.5; Estimated Glomerular Filt Rate 45; Potassium 4.4 mmol/L (3.3-5.1); Sodium 140 mmol/L (135-145)
[2025-09-20] VITALS (9 sets, daily range): BP systolic 116–154; BP diastolic 60–86; PULSE 51–74; RESP 15–18; TEMP 36.5–36.9; O2SAT 95–98
[2025-09-20 11:12] LABS: Anion Gap 10 (12-20); Blood Urea Nitrogen 12 mg/dL (9-16); Calcium 9.0 mg/dL (8.4-10.2); Carbon Dioxide 28 mmol/L (22-29); Chloride 107 mmol/L (96-108); Creatinine Clr Calc Pharmacy 60.8; Estimated Glomerular Filt Rate 59; Potassium 4.4 mmol/L (3.3-5.1); Sodium 141 mmol/L (135-145)
--- NOTE | 2025-09-20 12:28 | MHC.CM.PN ---
PT CLEARED TO DC HOME WITH NO SERVICES CAR IN LOT
--- NOTE | 2025-09-20 16:16 | HO.POSTANES ---
Post Anesthesia Evaluation Post Anesthesia Evaluation Date of Service: 09/20/25 Vital Signs: Vital Signs Temp Pulse Resp BP Pulse Ox O2 Del Method 09/20/25 12:00 98.1 F 71 18 129/86 97 Room Air 09/20/25 07:56 98.3 F 60 18 126/74 98 Room Air 09/20/25 05:41 98.1 F 60 15 154/78 H 98 Room Air 09/20/25 04:45 98.4 F 74 17 116/65 97 Room Air Anesthesia: General LMA Mental Status: Awake Pain Control: Satisfactory Nausea/Vomiting: None Hydration: Adequate Anesthesia-Related Issues: No Anes. Related Issues
== END 2025-09-20 12:56 | disposition home or self-care (01) | DRG 661 ==
LOC: HO.ED 03:37 → HO.EDOVER 03:47 → HO.S3 07:45
PROVIDERS: Urology; Admitting Provider Internal Medicine; Emergency Provider Emergency Medicine; PCP Internal Medicine; Visit Provider Internal Medicine
PROC: 0T778DZ Dilation of Left Ureter with Intraluminal Device, Via Natural or Artificial Opening Endoscopic (ICD-10-PCS; principal; 2025-09-19 16:00)
DX: N13.2 Hydronephrosis with renal and ureteral calculous obstruction (principal); N17.9 Acute kidney failure, unspecified; R00.1 Bradycardia, unspecified
CPT/HCPCS: 36415; 74176; 76770; 80048; 80053; 81001; 82570; 83735; 83935; 84100; 84300; 84443; 85025; 85999; 93005; 99285; C1758; C1769; C2617; J0690; J0737; J1171; J2003; J2270; J2405; J2704; J3010; Q9967

== ENCOUNTER → 2025-09-18 01:59 | Outpatient (BNV) | payer SELFPAY | PROVIDERS: Emergency Provider Emergency Medicine; PCP Internal Medicine; Visit Provider Radiology Diagnostic Radiology | DX: K57.30 Diverticulosis of large intestine without perforation or abscess without bleeding (principal); N13.2 Hydronephrosis with renal and ureteral calculous obstruction | CPT/HCPCS: 74176 ==

== ENCOUNTER 2025-09-18 03:33 | Outpatient (BNV) | payer SELFPAY | END 2025-09-19 08:42 | PROVIDERS: Admitting Provider Internal Medicine; Emergency Provider Emergency Medicine; PCP Internal Medicine; Visit Provider Radiology Diagnostic Radiology | DX: N20.1 Calculus of ureter (principal); N13.4 Hydroureter | CPT/HCPCS: 76770 ==

== ENCOUNTER 2025-09-18 03:33 | Outpatient (BNV) | payer SELFPAY | END 2025-09-18 04:23 | PROVIDERS: Admitting Provider Internal Medicine; Emergency Provider Emergency Medicine; PCP Internal Medicine; Visit Provider Internal Medicine | DX: R00.1 Bradycardia, unspecified (principal); I44.4 Left anterior fascicular block | CPT/HCPCS: 93010 ==

== ENCOUNTER → 2025-09-18 03:33 | Outpatient (BNV) | payer SELFPAY | PROVIDERS: Admitting Provider Internal Medicine; Emergency Provider Emergency Medicine; PCP Internal Medicine; Visit Provider Internal Medicine | DX: N17.9 Acute kidney failure, unspecified (principal); N20.1 Calculus of ureter | CPT/HCPCS: 99223; 99499 ==

== ENCOUNTER → 2025-09-18 03:33 | Outpatient (BNV) | payer SELFPAY | PROVIDERS: Admitting Provider Internal Medicine; Emergency Provider Emergency Medicine; PCP Internal Medicine; Visit Provider Internal Medicine Hypertension Specialist | DX: N20.0 Calculus of kidney (principal); N17.9 Acute kidney failure, unspecified | CPT/HCPCS: 99223 ==

== ENCOUNTER → 2025-09-18 03:33 | Outpatient (BNV) | payer SELFPAY | PROVIDERS: Admitting Provider Internal Medicine; Emergency Provider Emergency Medicine; PCP Internal Medicine; Visit Provider Urology | DX: N20.1 Calculus of ureter (principal); N13.1 Hydronephrosis with ureteral stricture, not elsewhere classified | CPT/HCPCS: 52332 ==